=== PATIENT | male | born 1970 | race Caucasian/White ===

== ENCOUNTER 2020-02-26 12:30 | Inpatient (IN) | payer MEDICARE, SELFPAY ==
[2020-02-26 13:29] VITALS: BP 105/63; PULSE 87; RESP 18; TEMP 37.4; O2SAT 96; BMI 30.4; BMI 30.5
--- NOTE | 2020-02-26 13:52 | PCM.HP.STD ---
Problem List (1) Physical debility Status: Acute Comment: due to recent Left BKA on 02/11/20 for osteomyelitis/septic arthritisw with a gas producing organism and gas throughout the left LE distal to the knee. BKA performed by [facility] M[facility] at [facility] (2) History of left below knee amputation Status: Acute Comment: 02/11/20 after he failed multiple debridements at [facility] and antibiotics (3) Osteomyelitis Status: Chronic Qualifiers: Osteomyelitis location: foot Laterality: left (4) Type II diabetes mellitus Status: Acute (5) Multiple sclerosis Status: Acute (6) Dyslipidemia Status: Acute (7) Anemia Status: Acute (8) Diabetic neuropathy associated with type 2 diabetes mellitus Status: Acute (9) Peripheral vascular disease Status: Acute (10) Amputation of right great toe Status: Acute (11) HTN (hypertension) Status: Chronic (12) GERD (gastroesophageal reflux disease) Status: Chronic History of Present Illness Date of Admission: 02/26/20 Chief Complaint: physical debility due to L BKA on 02/11/20 Amor Arzola is a 50 year old M with a PMH of MS, DM II - poorly controlled, HTN, diabetic nephropathy, diabetic peripheral polyneuropathy and hx of a Chiari malformation requiring neurosurgery who sprained his ankle and was seen at [facility] ED. A splint was applied and when it was removed 3 days later there were extensive pressure wounds. He was admitted to [facility] and had debridement. He was discharged on IV antibiotics and a wound vac to a SNF. Despite the aggressive wound care and antibiotics the wounds continued to get worse and he was sent to [facility] emergently. CT of the left foot and ankle showed gas throughout the foot and ankle and osteomyelitis. He was taken for an emergent BKA on 02/11/20. He was transferred to [facility] inpt rehab on 02/26/20 for 3 hours af therapy daily to restore him at or near his prior level of function. Amor Lives in an appt which is on 1 floor and there is a ramp entrance. He has a tub/shower unit and a std toilet. He has a cane and a rollator at home. He lives with his girlfriend. He is on disability. He has not seen anyone for MS in over 10 years and he is not on any medication for MS. He had a surgery in the past for a Chiari malformation. He manages his finances at home. Tells me that he checks his BS's twice a day. He takes A long acting insulin at supper daily and also takes Trajenta. He sees his PCP every 3 months. HGBA1C was 14 in October 2019. He tells me that they told him at [facility] his circulation was good. Past Medical History Past Medical History (Chronic Problems): Chronic Problems Osteomyelitis (Chronic) HTN (hypertension) (Chronic) GERD (gastroesophageal reflux disease) (Chronic) Allergies No Known Allergies Allergy (Verified 02/26/20 12:59) Home Medications: Ambulatory Orders Medication Instructions Recorded Atorvastatin Calcium 40 mg PO QHS 02/26/20 Gabapentin [Neurontin] 100 mg PO Q8 02/26/20 Insulin Detemir [Levemir Flextouch] 48 units SC QHS 02/26/20 Insulin Lispro [Humalog] 0 - 15 unit SQ QHS 02/26/20 Insulin Lispro [Humalog] 0 - 30 unit SC TID 02/26/20 Lisinopril 5 mg PO DAILY 02/26/20 Omeprazole 40 mg PO QHS 02/26/20 Oxycodone [Oxyir] 5 mg PO Q6H PRN PRN 02/26/20 Sitagliptin Phosphate [Januvia] 100 mg PO DAILY 02/26/20 Surgical History: - - 2016 R great toe Amputation. 02/11/20 L BKA. 1994 surgery for chiari malformation, ORIF of foot and toes 03/27/14. Psychiatric History: No pertinent psych hx Lives: Spouse/ Significant Other Smoking Status: Never smoker Tobacco Use: Non-smoker, - - admits to binge drinking 12 beers at a time a couple times a month Alcohol: Occasional - admits to binge drinking 12 beers at a time a couple times a month Drugs: None - *Family History Paternal History Items: - - His dad wied when he was 1 YOA and he does not know anything about his dad Maternal History Items: Cancer - mom of stomach cancer Sibling History Items: - - he has 6 brothers and 4 sisters. 12 sister has diabetes and he has a brother with CVD and has had a few heart attacks. Review of Systems Constitutional: Denies: Anorexia, Chills, Fever, Malaise, Weight Change Eyes: Denies: Vision Change HEENT: Denies: Difficulty Swallowing, Head Aches, Post Nasal Drip, Sinus Congestion, Sinus Drainage, Sore Throat Cardiovascular: Denies: Chest Pain, Claudication, Edema, Light Headedness, Palpitations Respiratory: Denies: Cough, Shortness of breath at rest, Shortness of breath upon exertion, Sputum production Gastrointestinal: Reports: - - he has reflux. Denies: Abdominal Pain, Constipation, Diarrhea, Nausea, Vomiting Genitourinary: Denies: Dysuria, Hesitancy Musculoskeletal: Reports: - - he has pain a the site of the AMputation. Denies: Joint Pain, Joint Tenderness Skin: Reports: Dryness. Denies: Jaundice, Rash, Wounds Neurological: Reports: Balance problems. Denies: Double vision, Difficulty swallowing, Focal weakness, Headaches, Numbness, Tingling, Tremor, Seizures Psychiatric: Denies: Anxiety, Depression, Homicidal Ideations, Suicidal Ideations Endocrine: Reports: Change in Body Habitus - he had the Left leg amputated Hematologic/ Lymphatic: Denies: Easy Bruising, Easy Bleeding, Hx of blood clot VTE Information - Inpt Only VTE Present on Admission: No VTE Mechan Device Prophylaxis: Knee High EDIS Hose VTE Pharm Prophylaxis ordered?: Yes Patient Problems: Active and Suspected Problems Physical debility (Acute) due to recent Left BKA on 02/11/20 for osteomyelitis/septic arthritisw with a gas producing organism and gas throughout the left LE distal to the knee. BKA performed by [facility] Marm[facility] at [facility] History of left below knee amputation (Acute) 02/11/20 after he failed multiple debridements at [facility] and antibiotics Type II diabetes mellitus (Acute) Multiple sclerosis (Acute) Dyslipidemia (Acute) Anemia (Acute) Diabetic neuropathy associated with type 2 diabetes mellitus (Acute) Peripheral vascular disease (Acute) Amputation of right great toe (Acute) - Physical Exam Vitals/I&O's: Vital Signs Temp Pulse Resp BP Pulse Ox 99.3 F H 87 18 105/63 96 02/26/20 13:29 02/26/20 13:29 02/26/20 13:29 02/26/20 13:29 02/26/20 13:29 Oxygen Delivery Method Room Air General: Alert, Oriented x3, Cooperative, No apparent distress, - - appropriate and pleasant HEENT: Atraumatic, PERRLA, EOMI, Normocephalic Oral: Moist Mucosa, No Gingival or Mucosal Lesions/ Ulcerations, - - poor dentition with several missing teeth and some carious teeth Neck: Supple, No JVD, Negative Carotid Bruits, No Nodes, Trachea Midline Lungs: Clear to auscultation - after a few deep breaths......initially had coarse crackles in the bases, No rhonchi, No wheeze, - - He has no conversational dyspnea and is not tachypneic. Cardiovascular: Regular Rhythm, Normal S1, Normal S2, No murmurs, No Ectopic Activity, No rub noted, No Gallop, - - resting HR is a little fast Abdomen: Bowel Sounds Present, Soft, Non Tender, Non-Distended Extremities: No clubbing, No cyanosis, No edema, - - the left popliteal pulse is 2/3 the right DP is 1-2/3 and the R PT is 2/3. The right popliteal is 2/3. the right foot is not cool to touch. He has had a R great toe amputation and there is long scar over the dorsum of the foot extending from the base of the ankle to the base of the toes. Skin: No rashes, No breakdown, - - The incision of the stump is well coapted and there is no jeremy-incisional erythema Musculoskeletal: No Muscle Wasting Neurological: Cranial nerves II-XII grossly intact, Neuro grossly intact - he has decreased sensation in his feet in a stocking distribution Psych/Mental Status: Normal Affect, Appropriate Current Medications Atorvastatin Calcium (Atorvastatin Calcium 40 Mg Tablet) 40 mg PO QHS [facility] Bisacodyl (Bisacodyl 10 Mg Suppository) 10 mg RECTAL .PRN X 1 PRN PRN Reason: Constipation Gabapentin (Gabapentin 100 Mg Capsule) 100 mg PO Q8 [facility] Stop: 03/04/20 23:00 Insulin Glargine (Insulin Glargine 100 Units/Ml Pen) 48 units SC QHS [facility] Linagliptin (Linagliptin 5 Mg Tablet) 5 mg PO DAILY [facility] Lisinopril (Lisinopril 5 Mg Tablet) 5 mg PO DAILY [facility] Magnesium Hydroxide (Magnesium Hydroxide 30 Ml Udc) 30 ml PO .PRN X 1 PRN PRN Reason: Constipation Non-Formulary Medication (Insulin Lispro) 0 - 15 unit SQ QHS [facility] Non-Formulary Medication (Insulin Lispro) 0 - 30 unit SC TID [facility] Oxycodone HCl (Oxycodone 5 Mg Tablet) 5 mg PO Q6H PRN PRN PRN Reason: Pain 1-10 or Fever Pantoprazole Sodium (Pantoprazole Sodium 40 Mg Tablet) 40 mg PO DAILY [facility] Assessment/Plan All Active Problems Physical debility (Acute) History of left below knee amputation (Acute) Type II diabetes mellitus (Acute) Multiple sclerosis (Acute) Dyslipidemia (Acute) Anemia (Acute) Diabetic neuropathy associated with type 2 diabetes mellitus (Acute) Peripheral vascular disease (Acute) Amputation of right great toe (Acute) Impressions 1. Physical debility secondary to recent left BKA for gas gangrene and osteomyelitis of the left foot and ankle. 2. Anemia secondary to acute blood loss plus/- iron deficiency MCV is low at 81 and the RDW is increased 3. Uncontrolled DM II - on LA insulin and Tradjenta 4. dietary non-compliance - Needs education 5. suspected PVD - will request the PVR's done a t [facility] 6. Hypertension 7. Hyperlipidemia - LDL is at goal 8. GERD 9. Reported history of multiple sclerosis-not on medication and has not seen a neurologist in greater than 10 years 10. Diabetic peripheral polyneuropathy 11. Diabetic nephropathy with an increased microalbumin/creatinine ratio at greater than 500 12. Low HDL 13. Family history of cardiovascular disease in his brother - Amor has never had a stress test. He denies CP with exertion BUT, he has neuropathy PLAN PT for gait stability OT for ADL's ST for evaluation of cognition Analgesics as needed Bowel protocol Fall precautions Assess for Anxiety/Depression GI prophylaxis with Protonix DVT prophylaxis with Lovenox 40 mg subcu daily and EDIS hose to the right lower extremity Follow up with orthopedics and his primary care physician following DC from [facility]. Will also need to follow up for a supervisor fabrication department sock and a prosthesis AM lab including CMP, CBC, Mag and Phos, Lipid panel, HGBA1C consult the internet developer to recreation counselor him in a proper carb consistent diet I have discussed having him follow up with Dr. Betancourt post discharge and he is agreeable Inpatient E&M: 25909 Init Hosp L2
[2020-02-26] MEDS: Gabapentin 100 MG Capsule PO ×2 (13:58→21:12)
[2020-02-26 14:06] LABS: Bedside Glucose 159 mg/dL (70-110)
[2020-02-26 15:00] VITALS: O2SAT 96
[2020-02-26 15:20] VITALS: PULSE 87; RESP 18; O2SAT 96
--- NOTE | 2020-02-26 15:25 | REHABEVAL_ITS ---
Admission Information Primary Diagnosis:: debility due to L BKA on 02/11/20 Status Changes from Prescreening?: No changes Identified Actual Problem List:: Skin Intergrity, Pain, ALteration in Cmfrt, Cognitve Impr/Memory Loss, Mobility Impaired, Self Care Deficit, Know.Dfct/Disease Process, Diabetes, Hyperglycemia, BP, Hypertension, Alteration-Leisure Activ. Potential Problem List:: DVT, Bleeding, Infection, UTI, Aspiration, Falls, Skin Integrity, Depression Risk of Complications DVT: LMWH, EDIS Hose Bleeding: Monitor Lab Values, Nursing to Teach Precautions for anti-coagulation therapy., Wound, if applicable, to be assessed every shift., Stroke patients assessed for lethargy or change in status. Infection: Clinical Staff to Monitor for S/S of infection:, S/S of infection i nclude fever, redness, warmth, etc. Urinary Tract Infection: Monitor for frequency, burning, discomfort, or incontinence., Nursing will obtain urine sample for urinalysis and C&S when ordered. Aspiration: Clinical staff will monitor for coughing, drooling, congestion., Speech will evaluate swallowing and dsyphasia., Nursing will monitor patient swa llowing during meals. Falls: Patient will be evaluated for Fall Precautions, Patient will be placed on Fall Precautions as indicated per protocol. Skin Breakdown: Nursing will assess skin daily using assessment tool., Nursing will place on Skin Breakdown Precautions as indicated. Pain: Clinical staff will assess patient's pain level per protocol., Medications will be given, if needed, and the pain level reassessed., Other methods: Massage, distraction, decrease stimulus, etc. used PRN. Plan of Care Patient requires physician specializing in physical medicine and rehab oversight to provide close medical supervision of rehab issues including: Pain Management, Sleep Problems, Bowel and Bladder, Medical and co-morbidity Management, DVT prophylaxis, Rehabilitation Leadership, Coordination of treatment team Patient needs Physical Therapy: For a minimum of 1 hour, At least 5 out of 7 days Patient needs Physical Therapy to improve:: Mobility, Mobility, Mobility, Strengthening, Transfers, Stretching, ROM, Endurance, Stairs, Gait, Balance Patient needs Occupational Therapy: For a minimum of 1 hour, At least 5 out of 7 days Patient needs Occupational Therapy to improve ADL's incl.: Eating, Grooming, Bathing, Dressing, Toileting, Toilet transfers, Community Reintegration, Higher functioning activities, Household tasks, Adaptive Equipment, Splinting, Other activities as determined Patient requires speech therapy: For a minimum of 1 hour, At least 5 out of 7 days Patient requires speech therapy for: Cognition, Language Skills, Compensatory Strategies Patient requires 24/ Rehabilitation Nursing for: Pain Issues, Identifying and preventing risk factors, Monitoring and reporting current medical conditions, Assisting with ambulation, transfer, and all ADL's, Teaching patients about disease process and medications, Family teaching, Providing safe environment, Bowel and Bladder Issues, Skin integrity, Medication Management Patient needs Reporting Consultant/ Case Management for: Discharge Planning, Arranging Home Equipment or Services, Family Interventions Patient needs Dietary and Nutrition Services for: Adequate Nutrition, Nutritional Supplements, Nutritional Education Goals Patient will remain: free from falls, or injury at time of discharge. Patient will perform bed mobility at: MOD I level of assist. Patient will complete transfers from bed to chair at: MOD I level of assist. Patient will ambulate: with MOD I assist, with LRD, - - 20 feet Patient will propel wheelchair: with MOD I assist, - - 200 feet Patient will complete upper body dressing at: MOD I level of assist. Patient will complete lower body dressing at: MOD I level of assist. Patient will complete toileting at: Standby Assist. Patient will perform bathing at: - - Minimal assist x1 Patient will complete grooming at: MOD I level of assist. Patient will complete home management skills at: MOD I level of assist. Patient will achieve: at MOD I assist, - - 1 step to negitiate curb Patient will have pain level of: of 3 or less Patient's skin will: remain intact, free from infection. Patient will receive: adequate nutrition. Discharge Planning Pt Prognosis for Sig. Practical Improv. w/in Reasonable Time: Good Anticipated D/C Destination: Home with Outpt Therapy Was Preadmission Assessment Accurate?: Yes
[2020-02-26] MEDS: Insulin Lispro 100 UNIT/ML INSULN.PEN SC (17:28)
[2020-02-26 17:35] LABS: Bedside Glucose 150 mg/dL (70-110)
[2020-02-26] MEDS: Atorvastatin Calcium 40 MG Tablet PO (21:12)
[2020-02-26 21:25] LABS: Bedside Glucose 255 mg/dL (70-110)
[2020-02-26 22:00] VITALS: BP 119/69; PULSE 87; RESP 16; TEMP 36.6; O2SAT 96
[2020-02-27 03:21] LABS: Bedside Glucose 152 mg/dL (70-110)
[2020-02-27 05:33] LABS: Hematocrit 32.3 % (40-54); Hemoglobin 10.2 g/dL (13.0-16.5); Mean Corp Hgb Conc 31.6 g/dL (32-36); Mean Corpuscular Hgb 25.8 pg (27.0-32.0); Mean Corpuscular Volume 81.8 fL (80-94); Mean Platelet Vol. 10.3 fl (6.2-12.0); Platelet Count 312 K/mm3 (150-450); RBC Distribution Width CV 15.5 % (11.6-14.6); RBC Distribution Width SD 46.5 fl (35.1-43.9); Red Blood Count 3.95 M/mm3 (4.6-6.2)
[2020-02-27 06:01] LABS: ALB/GLOB Ratio 0.5 RATIO (0.9-2.4); AST(SGOT) 27 U/L (15-37); Alanine Aminotransfer ALT/SGPT 39 U/L (16-61); Albumin, Serum 2.5 g/dL (3.2-5.0); Alkaline Phosphatase 176 U/L (45-117); Anion Gap 7 (5-15); BUN 20 mg/dL (7-18); BUN/Creat Ratio 19.4 RATIO (10-20); Calcium,Total 8.8 mg/dL (8.5-10.1); Chloride 104 mmol/L (98-107); Cholesterol 138 mg/dL (200); Creatinine, Serum 1.03 mg/dL (0.70-1.30); EST Glomerular Filtration Rate 81 mL/min (>60); Est Glom Filt Rate - Afr Amer 98 mL/min (>60); Estimated Creatinine Clearance 83.89 ml/min; Glucose 126 mg/dL (74-106); High Density Lipoprotein 31 mg/dL; Magnesium 2.1 mg/dL (1.6-2.6); Potassium 4.2 mmol/L (3.5-5.1); Protein, Total 7.5 g/dL (6.4-8.2); Sodium Level 140 mmol/L (136-145); Triglycerides 200 mg/dL; Very Low Density Lipoprotein 40 mg/dL (5-40)
[2020-02-27] MEDS: oxyCODONE 5 MG Tablet PO (06:16)
[2020-02-27] MEDS: Gabapentin 100 MG Capsule PO ×3 (06:16→21:22)
[2020-02-27 07:50] LABS: Hemoglobin A1c 8.3 % (3.8-5.6)
[2020-02-27] MEDS: Insulin Lispro 100 UNIT/ML INSULN.PEN SC ×3 (07:53→16:27)
[2020-02-27] MEDS: Pantoprazole Sodium 40 MG Tablet PO (07:55)
[2020-02-27] MEDS: Lisinopril 5 MG Tablet PO (07:55)
[2020-02-27] MEDS: LINAGLIPTIN 5 MG TABLET PO (07:55)
[2020-02-27 08:43] VITALS: PULSE 90; RESP 16; O2SAT 95
[2020-02-27 08:56] VITALS: BP 108/67; PULSE 90; RESP 16; TEMP 36.6; O2SAT 95
--- NOTE | 2020-02-27 10:23 | NURSING ---
Requests for records faxed to Janna Benavides CNP and [facility].
--- NOTE | 2020-02-27 10:53 | NURSING ---
Spoke with nurse for Dr. Marmolejo at this time. Okay to remove holly to BKA incision on 03/03 as long as incision WNL.
--- NOTE | 2020-02-27 11:22 | PCM.PROGNOTE ---
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 BKA performed by Dr. Marmolejo at [facility] History of left below knee amputation (Acute) 02/11/20 after he failed multiple debridements at [facility] and antibiotics Type II diabetes mellitus (Acute) Multiple sclerosis (Acute) Dyslipidemia (Acute) Anemia (Acute) Diabetic neuropathy associated with type 2 diabetes mellitus (Acute) Peripheral vascular disease (Acute) Amputation of right great toe (Acute) Subjective: Afebrile VSS Maintaining appropriate oxygen saturation on RA Oral intake is very good Discussed with nursing - no problems that need addressed Reviewed the PT/OT notes Medication list reviewed. We have not received arterial studies of the LE's from [place] yet. I did get a PN form his PCP. He has diabetic nephropathy with an increased microalbumin ratio of 502mg/G. This number doubled from 2019 to 2020. Creatinine is currently 1.03 with an estimated GFR of 81. He is not compliant with medications....he failed to start the prandial insulin prescribed by his PCP All lab was personally reviewed. Triglycerides are high at 200-I suspect this is secondary to poorly controlled blood sugar. The total cholesterol is 138 with a LDL of 67 (at goal) and a low HDL at 31. Hemoglobin is low at 10.2 with an MCV of 81.8 and increased RDW. - Physical Exam Vitals/I&O's: Vital Signs Temp Pulse Resp BP Pulse Ox 97.8 F 90 16 108/67 95 02/27/20 08:56 02/27/20 08:56 02/27/20 08:56 02/27/20 08:56 02/27/20 08:56 Oxygen Delivery Method Room Air Weight: 206 lb 2.115 oz Body Mass Index (BMI) 30.4 Intake and Output for Last 24 Hours 02/25/20 02/26/20 02/27/20 23:59 23:59 23:59 Intake Total 480 / 480 955 / 955 Output Total 950 / 950 400 / 400 Balance -470 / -470 555 / 555 General: Alert, Cooperative, No apparent distress Oral: Moist Mucosa Lungs: Clear to auscultation Cardiovascular: Regular rate, Regular Rhythm, Normal S1, Normal S2, No murmurs, No Gallop Abdomen: Bowel Sounds Present, Soft, Non Tender Extremities: No edema, No Calf Tenderness Skin: - - The incision is intact with no periincisional erythema and no purulent discharge. The skin is dry and flaky. Musculoskeletal: Muscle Wasting - Of the right calf especially and somewhat of the BL thighs Neurological: Cranial nerves II-XII grossly intact Psych/Mental Status: Normal Affect, Appropriate Laboratory Results 02/26/20 13:59: POC Glucose 159 H 02/26/20 17:23: POC Glucose 150 H 02/26/20 21:09: POC Glucose 255 H 02/27/20 03:16: POC Glucose 152 H 02/27/20 05:23: WBC 8.0, RBC 3.95 L, Hgb 10.2 L, Hct 32.3 L, MCV 81.8, MCH 25.8 L, MCHC 31.6 L, RDW Std Deviation 46.5 H, RDW Coeff of Emily 15.5 H, Plt Count 312, MPV 10.3 02/27/20 05:23: Sodium 140, Potassium 4.2, Chloride 104, Carbon Dioxide 29.0, Anion Gap 7, BUN 20 H, Creatinine 1.03, Estim Creat Clear Calc 83.89, Est GFR (MDRD) Af Amer 98, Est GFR (MDRD) Non-Af 81, BUN/Creatinine Ratio 19.4, Glucose 126 H, Calcium 8.8, Magnesium 2.1, Total Bilirubin 0.60, AST 27, ALT 39, Alkaline Phosphatase 176 H, Total Protein 7.5, Albumin 2.5 L, Globulin 5.0 H, Albumin/Globulin Ratio 0.5 L, Triglycerides 200 H, Cholesterol 138, LDL Cholesterol 67, VLDL Cholesterol 40, HDL Cholesterol 31 L 02/27/20 05:23: Hemoglobin A1c 8.3 H Current Medications Atorvastatin Calcium (Atorvastatin Calcium 40 Mg Tablet) 40 mg PO QHS [facility] Last Admin: 02/26/20 21:12 Dose: 40 mg Documented by: Bisacodyl (Bisacodyl 10 Mg Suppository) 10 mg RECTAL .PRN X 1 PRN PRN Reason: Constipation Gabapentin (Gabapentin 100 Mg Capsule) 100 mg PO Q8 [facility] Stop: 03/04/20 23:00 Last Admin: 02/27/20 06:16 Dose: 100 mg Documented by: Insulin Glargine (Insulin Glargine 100 Units/Ml Pen) 48 units SC QHS [facility] Last Admin: 02/26/20 21:12 Dose: 48 u Documented by: Insulin Human Lispro (Insulin Lispro 100 Unit/Ml Insuln.Pen) 0 unit SC TIDAC [facility]; Protocol Last Admin: 02/27/20 07:53 Dose: 3 u Documented by: Linagliptin (Linagliptin 5 Mg Tablet) 5 mg PO DAILY [facility] Last Admin: 02/27/20 07:55 Dose: 5 mg Documented by: Lisinopril (Lisinopril 5 Mg Tablet) 5 mg PO DAILY [facility] Last Admin: 02/27/20 07:55 Dose: 5 mg Documented by: Magnesium Hydroxide (Magnesium Hydroxide 30 Ml Udc) 30 ml PO .PRN X 1 PRN PRN Reason: Constipation Oxycodone HCl (Oxycodone 5 Mg Tablet) 5 mg PO Q6H PRN PRN PRN Reason: Pain 1-10 or Fever Last Admin: 02/27/20 06:16 Dose: 5 mg Documented by: Pantoprazole Sodium (Pantoprazole Sodium 40 Mg Tablet) 40 mg PO DAILY [facility] Last Admin: 02/27/20 07:55 Dose: 40 mg Documented by: Medical Necessity - Tobacco Use Smoking Status: Never smoker Tobacco Use: Non-smoker, - - admits to binge drinking 12 beers at a time a couple times a month Assessment/Plan All Active Problems Physical debility (Acute) History of left below knee amputation (Acute) Type II diabetes mellitus (Acute) Multiple sclerosis (Acute) Dyslipidemia (Acute) Anemia (Acute) Diabetic neuropathy associated with type 2 diabetes mellitus (Acute) Peripheral vascular disease (Acute) Amputation of right great toe (Acute) Impressions 1. Physical debility secondary to recent left BKA for gas gangrene and osteomyelitis of the left foot and ankle and also due to untreated MS with atrophy of the muscles of the LE's. 2. Anemia secondary to acute blood loss plus - iron studies not consistent with iron deficiency 3. Uncontrolled DM II - on LA insulin and Tradjenta....he is refusing the Metformin I ordered Monday because it doesn't agree with him 4. dietary non-compliance - Needs education 5. no PVD on vascular studies done at [facility] - he had triphasic wave forms and good CORI's 6. Hypertension -controlled 7. Hyperlipidemia - LDL is at goal 8. GERD 9. Reported history of multiple sclerosis-diagnosed in 1991 by a PCP in [place] and then [facility] [place] who confirmed. 10. Diabetic peripheral polyneuropathy 11. Diabetic nephropathy with an increased microalbumin/creatinine ratio at greater than 500 12. Low HDL 13. Family history of cardiovascular disease in his brother - Amor has never had a stress test. He denies CP with exertion BUT, he has neuropathy 14. Cognitive dysfunction - short term memory difficulties - ST will continue to work with him. This may be multifactorial....due to MS and to possible hydrocephalus prior to the surgery for the CHiari malformation 15. dry dermatitis of the LE's BL - moisturizer ordered Continue therapy I would like to gather aida abdalla information on how the diagnosis of MS was made and also why if he does have MS it is not being treated and he is not following up with a neurologist? I suspect he he does have MS because he has significant atrophy of the R calf muscle and the BL thighs. Inpatient E&M: 71259 Subs Hosp L2
[2020-02-27 11:25] LABS: Bedside Glucose 146 mg/dL (70-110)
[2020-02-27 11:35] LABS: Bedside Glucose 268 mg/dL (70-110)
[2020-02-27 16:50] LABS: Bedside Glucose 160 mg/dL (70-110)
--- NOTE | 2020-02-27 17:49 | NURSING ---
Medical records received from Janna Benavides CNP and [facility].
[2020-02-27 19:44] VITALS: BP 107/58; PULSE 98; RESP 18; TEMP 36.9; O2SAT 99
[2020-02-27 21:16] LABS: Bedside Glucose 257 mg/dL (70-110)
[2020-02-27] MEDS: Atorvastatin Calcium 40 MG Tablet PO (21:22)
[2020-02-28] MEDS: Gabapentin 100 MG Capsule PO ×3 (05:34→22:50)
[2020-02-28 06:55] LABS: Bedside Glucose 169 mg/dL (70-110)
[2020-02-28] MEDS: oxyCODONE 5 MG Tablet PO (07:39)
[2020-02-28] MEDS: Lisinopril 5 MG Tablet PO (07:40)
[2020-02-28] MEDS: LINAGLIPTIN 5 MG TABLET PO (07:40)
[2020-02-28] MEDS: Pantoprazole Sodium 40 MG Tablet PO (07:40)
[2020-02-28] MEDS: Insulin Lispro 100 UNIT/ML INSULN.PEN SC ×3 (07:41→17:06)
--- NOTE | 2020-02-28 09:53 | PCM.PROGNOTE ---
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 BKA performed by Dr. Marmolejo at [facility] History of left below knee amputation (Acute) 02/11/20 after he failed multiple debridements at [facility] and antibiotics Type II diabetes mellitus (Acute) Multiple sclerosis (Acute) Dyslipidemia (Acute) Anemia (Acute) Diabetic neuropathy associated with type 2 diabetes mellitus (Acute) Peripheral vascular disease (Acute) Amputation of right great toe (Acute) Subjective: Afebrile VSS-blood pressure is well controlled. Heart rate is frequently in the 90s. Maintaining appropriate oxygen saturation on RA Oral intake is good Discussed with nursing - no problems that need addressed Reviewed the PT/OT/ST notes Medication list reviewed. Blood sugar record was reviewed. BS's are not adequately controlled Denies pain. No nausea/vomiting/abdominal plain/shortness of breath/palpitations/lightheadedness. Nursing can not get him to stand and pivot....therapy is working with him using a slide board. - Physical Exam Vitals/I&O's: Vital Signs Temp Pulse Resp BP Pulse Ox 98.4 F 98 18 107/58 L 99 02/27/20 19:44 02/27/20 19:44 02/27/20 19:44 02/27/20 19:44 02/27/20 19:44 Oxygen Delivery Method Room Air Weight: 206 lb 2.115 oz Body Mass Index (BMI) 30.4 Intake and Output for Last 24 Hours 02/26/20 02/27/20 02/28/20 23:59 23:59 23:59 Intake Total 480 / 480 2675 / 2825 550 / 550 Output Total 950 / 950 1675 / 1675 1200 / 1200 Balance -470 / -470 1000 / 1150 -650 / -650 General: Alert, Oriented x3, Cooperative, No apparent distress HEENT: Atraumatic Neck: Supple Lungs: Clear to auscultation Cardiovascular: Regular Rhythm, No Gallop, - - resting HR is a little high Abdomen: Soft, Non Tender Extremities: No edema Skin: No rashes, No breakdown, - - The incision is intact without any sign of infection Musculoskeletal: Muscle Wasting - Legs Neurological: Cranial nerves II-XII grossly intact Laboratory Results 02/27/20 06:16: POC Glucose 146 H 02/27/20 11:28: POC Glucose 268 H 02/27/20 16:26: POC Glucose 160 H 02/27/20 21:06: POC Glucose 257 H 02/28/20 06:45: POC Glucose 169 H Current Medications Atorvastatin Calcium (Atorvastatin Calcium 40 Mg Tablet) 40 mg PO QHS [facility]END[facility] TO [facility] Last Admin: 02/27/20 21:22 Dose: 40 mg Documented by: Bisacodyl (Bisacodyl 10 Mg Suppository) 10 mg RECTAL .PRN X 1 PRN PRN Reason: Constipation Gabapentin (Gabapentin 100 Mg Capsule) 100 mg PO Q8 [facility] Stop: 03/04/20 23:00 Last Admin: 02/28/20 05:34 Dose: 100 mg Documented by: Insulin Glargine (Insulin Glargine 100 Units/Ml Pen) 48 units SC QHS [facility] Last Admin: 02/27/20 21:21 Dose: 48 u Documented by: Insulin Human Lispro (Insulin Lispro 100 Unit/Ml Insuln.Pen) 0 unit SC TIDAC [facility]; Protocol Last Admin: 02/28/20 07:41 Dose: 3 u Documented by: Linagliptin (Linagliptin 5 Mg Tablet) 5 mg PO DAILY [facility] Last Admin: 02/28/20 07:40 Dose: 5 mg Documented by: Lisinopril (Lisinopril 5 Mg Tablet) 5 mg PO DAILY [facility] Last Admin: 02/28/20 07:40 Dose: 5 mg Documented by: Magnesium Hydroxide (Magnesium Hydroxide 30 Ml Udc) 30 ml PO .PRN X 1 PRN PRN Reason: Constipation Oxycodone HCl (Oxycodone 5 Mg Tablet) 5 mg PO Q6H PRN PRN PRN Reason: Pain 1-10 or Fever Last Admin: 02/28/20 07:39 Dose: 5 mg Documented by: Pantoprazole Sodium (Pantoprazole Sodium 40 Mg Tablet) 40 mg PO DAILY [facility] Last Admin: 02/28/20 07:40 Dose: 40 mg Documented by: Medical Necessity - Tobacco Use Smoking Status: Never smoker Tobacco Use: Non-smoker, - - admits to binge drinking 12 beers at a time a couple times a month Assessment/Plan All Active Problems Physical debility (Acute) History of left below knee amputation (Acute) Type II diabetes mellitus (Acute) Multiple sclerosis (Acute) Dyslipidemia (Acute) Anemia (Acute) Diabetic neuropathy associated with type 2 diabetes mellitus (Acute) Peripheral vascular disease (Acute) Amputation of right great toe (Acute) Impressions 1. Physical debility secondary to multiple sclerosis and recent left BKA. Patient's legs have been weak for quite some time. He is unable to stand and pivot to get in and out of bed. Nursing and therapy are now using a slide board. I suspect he will not be able to walk as walking and balance were disabilities for him prior to the amputation. May just have to focus on WC mobility. 2. hyperkeratotic callous on the R foot with a very small wound on the dorsum of the 3rd toe I would like to see him follow up with the [facility] for MS Will discuss with the SW getting a casey saw operator to advocate for him.....I do not think he is mentally able to do this. Consult Dr. Harrison for debraidement of the nails on the left foot and also debridement of the callous. Inpatient E&M: 80713 Subs Hosp L1
[2020-02-28 10:00] VITALS: BP 114/65; PULSE 94; RESP 16; TEMP 36.8; O2SAT 98
[2020-02-28 11:15] LABS: Bedside Glucose 203 mg/dL (70-110)
[2020-02-28 11:28] LABS: Ferritin 230 ng/mL (26-388); Iron 46 ug/dL (65-175); Iron Binding Capacity,Total 216 ug/dL (250-450); PERCENT IRON SATURATION 21.3 % (15.0-55.0)
[2020-02-28 14:34] LABS: Thyroid Stim Hormone (TSH) 1.43 uIU/mL (0.358-3.74)
[2020-02-28] MEDS: metFORMIN HCl 500 MG Tablet 750 MG PO (17:05)
[2020-02-28 18:11] LABS: Bedside Glucose 194 mg/dL (70-110)
[2020-02-28 19:37] VITALS: BP 135/77; PULSE 98; RESP 18; TEMP 36.4; O2SAT 98
[2020-02-28 21:11] LABS: Bedside Glucose 235 mg/dL (70-110)
[2020-02-28] MEDS: Pantoprazole Sodium 20 MG Tablet PO (22:50)
[2020-02-28] MEDS: Atorvastatin Calcium 40 MG Tablet PO (22:50)
[2020-02-29] MEDS: Enoxaparin 40 MG/0.4 ML Syringe SC (06:22)
[2020-02-29] MEDS: Gabapentin 100 MG Capsule PO ×3 (06:23→21:41)
[2020-02-29 07:06] LABS: Bedside Glucose 142 mg/dL (70-110)
[2020-02-29] MEDS: metFORMIN HCl 500 MG Tablet 750 MG PO (08:30)
[2020-02-29] MEDS: LINAGLIPTIN 5 MG TABLET PO (08:31)
[2020-02-29] MEDS: Pantoprazole Sodium 20 MG Tablet PO ×2 (08:31→21:41)
[2020-02-29] MEDS: Lisinopril 5 MG Tablet PO (08:31)
[2020-02-29 08:34] VITALS: BP 116/70; PULSE 91; RESP 16; TEMP 36.7; O2SAT 96
[2020-02-29 11:31] LABS: Bedside Glucose 215 mg/dL (70-110)
[2020-02-29] MEDS: Insulin Lispro 100 UNIT/ML INSULN.PEN SC ×2 (13:01→17:20)
[2020-02-29 16:40] LABS: Bedside Glucose 173 mg/dL (70-110)
--- NOTE | 2020-02-29 18:10 | PCM.CONS.GEN ---
Reason for Consult Date of Consultation: 02/29/20 Reason for Consultation: Right foot History of Present Illness: The patient is a 50 year old gentleman with history of multiple medical problems including hx of uncontrolled diabetes, MS, gangrene s/p left BKA end of January now in rehab. Podiatry was consulted for right foot, patient has hx of ulceration on bottom of right foot. Patient with hx of right 1st toe amputation, also hx of surgery on right foot from fractures per patient. Patient relates regarding left foot he had gangrene, relates he is not sure how he got gangrene, he relates by the time he realized he had gangrene it was to late and he had to have the amputation. Patient relates regarding wound right foot he was following with a physician in [place], relates he was putting Medihoney on it and it really helped. Patient also with long toenails which need to be reduced right foot. He also relates he had a pair of shoes which rubbed his toes on right foot and caused some sores - he relates he does not have those shoes any more. Past Medical History Past Medical History (Chronic Problems): Chronic Problems Osteomyelitis (Chronic) HTN (hypertension) (Chronic) GERD (gastroesophageal reflux disease) (Chronic) Allergies No Known Allergies Allergy (Verified 02/26/20 12:59) Home Medications: Ambulatory Orders Medication Instructions Recorded Atorvastatin Calcium 40 mg PO QHS 02/26/20 Gabapentin [Neurontin] 100 mg PO Q8 02/26/20 Insulin Detemir [Levemir Flextouch] 48 units SC QHS 02/26/20 Insulin Lispro [Humalog] 0 - 15 unit SQ QHS 02/26/20 Insulin Lispro [Humalog] 0 - 30 unit SC TID 02/26/20 Lisinopril 5 mg PO DAILY 02/26/20 Omeprazole 40 mg PO QHS 02/26/20 Oxycodone [Oxyir] 5 mg PO Q6H PRN PRN 02/26/20 Sitagliptin Phosphate [Januvia] 100 mg PO DAILY 02/26/20 Surgical History: - - 2016 R great toe Amputation. 02/11/20 L BKA. 1994 surgery for chiari malformation, ORIF of foot and toes 03/27/14. Psychiatric History: No pertinent psych hx Lives: Spouse/ Significant Other Smoking Status: Never smoker Tobacco Use: Non-smoker, - - admits to binge drinking 12 beers at a time a couple times a month Alcohol: Occasional - admits to binge drinking 12 beers at a time a couple times a month Drugs: None - *Family History Paternal History Items: - - His dad wied when he was 1 YOA and he does not know anything about his dad Maternal History Items: Cancer - mom of stomach cancer Sibling History Items: - - he has 6 brothers and 4 sisters. 12 sister has diabetes and he has a brother with CVD and has had a few heart attacks. Review of Systems Constitutional: Denies: Chills, Fever Gastrointestinal: Denies: Nausea, Vomiting Patient Problems: Active and Suspected Problems Physical debility (Acute) due to recent Left BKA on 02/11/20 for osteomyelitis/septic arthritisw with a gas producing organism and gas throughout the left LE distal to the knee. BKA performed by Dr. Marmolejo at [facility] History of left below knee amputation (Acute) 02/11/20 after he failed multiple debridements at [facility] and antibiotics Type II diabetes mellitus (Acute) Multiple sclerosis (Acute) Dyslipidemia (Acute) Anemia (Acute) Diabetic neuropathy associated with type 2 diabetes mellitus (Acute) Peripheral vascular disease (Acute) Amputation of right great toe (Acute) Objective: No evidence of acute ischemia to the right foot, CFT < 2 seconds to all toes, however DP and PT pulses diminished with palpation to the right foot. - Physical Exam Vitals/I&O's: Vital Signs Temp Pulse Resp BP Pulse Ox 98.3 F 98 18 114/66 98 02/29/20 19:21 02/29/20 19:21 02/29/20 19:21 02/29/20 19:21 02/29/20 19:21 Oxygen Delivery Method Room Air Weight: 93.5 kg Body Mass Index (BMI) 30.4 Intake and Output for Last 24 Hours 02/27/20 02/28/20 02/29/20 23:59 23:59 23:59 Intake Total 2675 / 2825 1999 1520 / 1520 Output Total 1675 / 1675 2725 / 2725 900 / 900 Balance 1000 / 1150 -725 / -725 620 / 620 General: Alert, Oriented x3, Cooperative, No apparent distress, - - Patient resting comfortably in bed watching TV. Extremities: No cyanosis, Capillary Refill Less than 3 Seconds, No Calf Tenderness, - - s/p left BKA. Right foot with HPK callus sub 1st met head w/ no open lesion. There is noted to be scab with superificial wound to the dorsal 3rd toe down to dermal layer, measures 2mm x 1mm and healthy viable tissue w/ no evidence of infection, no other open lesions to right foot. Skin: - - Right foot with long, dystrophic toenails, thickened 1-5. Skin with some xerosis right foot. No other open lesions to the right foot, no erythema, no blistering, no necrosis, no fluctuance, no crepitus to the right foot. Musculoskeletal: No Tenderness to Palpation of Joints or Extremities - Right foot. s/p right 1st toe amputation which is well healed. No POP or pain on ROM to the foot or ankle, right., - - Contracture of lesser toes, right foot. Neurological: - - Sensation appears to be intact via light touch to the right foot. Motor function intact to the right foot. Psych/Mental Status: Alert and oriented to time, place, person, mood and affect Laboratory Results 02/28/20 21:05: POC Glucose 235 H 02/29/20 06:21: POC Glucose 142 H 02/29/20 11:24: POC Glucose 215 H 02/29/20 16:35: POC Glucose 173 H Current Medications Atorvastatin Calcium (Atorvastatin Calcium 40 Mg Tablet) 40 mg PO QHS [facility] Last Admin: 02/28/20 22:50 Dose: 40 mg Documented by: Bisacodyl (Bisacodyl 10 Mg Suppository) 10 mg RECTAL .PRN X 1 PRN PRN Reason: Constipation Dextrose (Dextrose 50%-Water 25 Gm/50 Ml Disp.Syrin) 0 gm IV X1 PRN; Protocol PRN Reason: Hypoglycemia Emollient Ointment (Emollient Combination No.72 500 Ml Lotion) 1 applic TOPICAL BID [facility]; Protocol Last Admin: 02/29/20 08:28 Dose: 1 applicatio Documented by: Enoxaparin Sodium (Enoxaparin 40 Mg/0.4 Ml Syringe) 40 mg SC DAILY@0600 [facility] Last Admin: 02/29/20 06:22 Dose: 40 mg Documented by: Gabapentin (Gabapentin 100 Mg Capsule) 100 mg PO Q8 [facility] Stop: 03/04/20 23:00 Last Admin: 02/29/20 13:06 Dose: 100 mg Documented by: Glucagon (Glucagon 1 Mg/Ml Syringe) 1 mg IM .X1 PRN PRN Reason: Hypoglycemia Insulin Glargine (Insulin Glargine 100 Units/Ml Pen) 40 units SC QHS [facility] Last Admin: 02/28/20 22:50 Dose: 40 units Documented by: Insulin Human Lispro (Insulin Lispro 100 Unit/Ml Insuln.Pen) 0 unit SC TIDAC [facility]; Protocol Last Admin: 02/29/20 17:20 Dose: 3 u Documented by: Linagliptin (Linagliptin 5 Mg Tablet) 5 mg PO DAILY [facility] Last Admin: 02/29/20 08:31 Dose: 5 mg Documented by: Lisinopril (Lisinopril 5 Mg Tablet) 5 mg PO DAILY [facility] Last Admin: 02/29/20 08:31 Dose: 5 mg Documented by: Magnesium Hydroxide (Magnesium Hydroxide 30 Ml Udc) 30 ml PO .PRN X 1 PRN PRN Reason: Constipation Metformin HCl (Metformin Hcl 500 Mg Tablet) 750 mg PO BIDCM [facility] Last Admin: 02/29/20 17:23 Dose: Not Given Documented by: Oxycodone HCl (Oxycodone 5 Mg Tablet) 5 mg PO Q6H PRN PRN PRN Reason: Pain 1-10 or Fever Last Admin: 02/28/20 07:39 Dose: 5 mg Documented by: Pantoprazole Sodium (Pantoprazole Sodium 20 Mg Tablet) 20 mg PO BID [facility] Last Admin: 02/29/20 08:31 Dose: 20 mg Documented by: Assessment/Plan All Active Problems Physical debility (Acute) History of left below knee amputation (Acute) Type II diabetes mellitus (Acute) Multiple sclerosis (Acute) Dyslipidemia (Acute) Anemia (Acute) Diabetic neuropathy associated with type 2 diabetes mellitus (Acute) Peripheral vascular disease (Acute) Amputation of right great toe (Acute) Callus sub 1st metatarsal head right foot Dystrophic toenails 1-5 right foot Xerosis right foot Ulcer down to dermal layer right 3rd toe Hammer toes right foot s/p right 1st toe amputation, s/p Left BKA Uncontrolled Diabetes Multiple Sclerosis Right foot evaluated. Reviewed findings with patient. Reviewed proper diabetic foot care and shoegear with patient. The HPK callus sub 1st met head was debrided using a 15 blade, this was done without incident, there is no open lesion present at this time. Debrided toenails 1-5 right foot using a nail nipper, removing bulk, this was done without incident. Wound right 3rd toe - small and superficial - clean with normal saline soln, apply dry gauze dressing - change daily until healed. Keep offloaded. There is no evidence of acute ischemia to the right foot. Vascular studies have been requested from his workup at [facility]. Patient wound benefits from diabetic shoes and inserts given diabetic status, as well as hx of ulcerations and previous amputation. Patient may follow [facility] discharge for measuring and ordering, along with further on going foot care which will be important for preventative DM foot care.
[2020-02-29 19:21] VITALS: BP 114/66; PULSE 98; RESP 18; TEMP 36.8; O2SAT 98
[2020-02-29] MEDS: oxyCODONE 5 MG Tablet PO (21:38)
[2020-02-29] MEDS: Atorvastatin Calcium 40 MG Tablet PO (21:41)
[2020-02-29 21:46] LABS: Bedside Glucose 186 mg/dL (70-110)
[2020-02-29 22:00] VITALS: PULSE 92; RESP 16; O2SAT 96
[2020-03-01] MEDS: Enoxaparin 40 MG/0.4 ML Syringe SC (06:09)
[2020-03-01] MEDS: Gabapentin 100 MG Capsule PO ×3 (06:09→22:06)
[2020-03-01 07:06] LABS: Bedside Glucose 139 mg/dL (70-110)
[2020-03-01 07:38] VITALS: BP 118/85; PULSE 88; RESP 16; TEMP 36.6; O2SAT 97
[2020-03-01] MEDS: LINAGLIPTIN 5 MG TABLET PO (09:43)
[2020-03-01] MEDS: Lisinopril 5 MG Tablet PO (09:43)
[2020-03-01] MEDS: Pantoprazole Sodium 20 MG Tablet PO ×2 (09:43→22:06)
[2020-03-01 11:15] LABS: Bedside Glucose 210 mg/dL (70-110)
[2020-03-01] MEDS: Insulin Lispro 100 UNIT/ML INSULN.PEN SC ×2 (13:10→17:46)
[2020-03-01 16:55] LABS: Bedside Glucose 161 mg/dL (70-110)
[2020-03-01 22:00] VITALS: BP 117/71; PULSE 89; RESP 18; TEMP 36.5; O2SAT 96
[2020-03-01] MEDS: Atorvastatin Calcium 40 MG Tablet PO (22:06)
[2020-03-01 22:21] LABS: Bedside Glucose 247 mg/dL (70-110)
[2020-03-01 22:25] VITALS: PULSE 99; RESP 16; O2SAT 97
[2020-03-02] MEDS: Enoxaparin 40 MG/0.4 ML Syringe SC (06:25)
[2020-03-02] MEDS: Gabapentin 100 MG Capsule PO ×3 (06:25→22:17)
[2020-03-02 06:45] LABS: Bedside Glucose 218 mg/dL (70-110)
--- NOTE | 2020-03-02 07:31 | NURSING ---
Reviewed and agree with truck packer documentation and charting.
[2020-03-02] MEDS: Insulin Lispro 100 UNIT/ML INSULN.PEN SC ×4 (07:41→22:18)
[2020-03-02] MEDS: metFORMIN HCl 500 MG Tablet 750 MG PO ×2 (07:42→17:02)
[2020-03-02] MEDS: oxyCODONE 5 MG Tablet PO (07:42)
[2020-03-02] MEDS: Pantoprazole Sodium 20 MG Tablet PO ×2 (07:43→22:17)
[2020-03-02] MEDS: Lisinopril 5 MG Tablet PO (07:43)
[2020-03-02] MEDS: LINAGLIPTIN 5 MG TABLET PO (07:43)
[2020-03-02 09:05] VITALS: BP 117/78; PULSE 98; RESP 16; TEMP 36.7; O2SAT 96
--- NOTE | 2020-03-02 10:25 | PCM.PROGNOTE ---
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 BKA performed by Dr. Marmolejo at [facility] History of left below knee amputation (Acute) 02/11/20 after he failed multiple debridements at [facility] and antibiotics Type II diabetes mellitus (Acute) Multiple sclerosis (Acute) Dyslipidemia (Acute) Anemia (Acute) Diabetic neuropathy associated with type 2 diabetes mellitus (Acute) Peripheral vascular disease (Acute) Amputation of right great toe (Acute) Subjective: Patient was seen today for follow up on right foot wound. He relates he is doing well, no complaints of fever, chills, nausea or vomiting. - Physical Exam Vitals/I&O's: Vital Signs Temp Pulse Resp BP Pulse Ox 98.1 F 98 16 117/78 96 03/02/20 09:05 03/02/20 09:05 03/02/20 09:05 03/02/20 09:05 03/02/20 09:05 Oxygen Delivery Method Room Air Weight: 93.5 kg Body Mass Index (BMI) 30.4 Intake and Output for Last 24 Hours 02/29/20 03/01/20 03/02/20 23:59 23:59 23:59 Intake Total 1760 / 1760 1540 / 1540 400 / 400 Output Total 1450 / 1450 1600 / 1600 400 / 400 Balance 310 / 310 -60 / -60 0 / 0 General: Alert, Oriented x3, Cooperative, No apparent distress Extremities: Capillary Refill Less than 3 Seconds, No Calf Tenderness - s/p left BKA. Right foot with resolved callus sub 1st met head w/ no open lesion. There is noted to be healing superificial wound to the dorsal 3rd toe down to dermal layer, measures <1mm x <1mm and healthy viable tissue w/ no evidence of infection, no other open lesions to right foot., - - No evidence of acute ischemia to the right foot. No POP or pain on ROM to the right foot. Psych/Mental Status: Appropriate, Alert and oriented to time, place, person, mood and affect Laboratory Results 03/01/20 11:11: POC Glucose 210 H 03/01/20 16:37: POC Glucose 161 H 03/01/20 22:06: POC Glucose 247 H 03/02/20 06:35: POC Glucose 218 H Current Medications Atorvastatin Calcium (Atorvastatin Calcium 40 Mg Tablet) 40 mg PO QHS [facility] Last Admin: 03/01/20 22:06 Dose: 40 mg Documented by: Bisacodyl (Bisacodyl 10 Mg Suppository) 10 mg RECTAL .PRN X 1 PRN PRN Reason: Constipation Dextrose (Dextrose 50%-Water 25 Gm/50 Ml Disp.Syrin) 0 gm IV X1 PRN; Protocol PRN Reason: Hypoglycemia Emollient Ointment (Emollient Combination No.72 500 Ml Lotion) 1 applic TOPICAL BID [facility]; Protocol Last Admin: 03/02/20 07:46 Dose: 1 applicatio Documented by: Enoxaparin Sodium (Enoxaparin 40 Mg/0.4 Ml Syringe) 40 mg SC DAILY@0600 [facility] Last Admin: 03/02/20 06:25 Dose: 40 mg Documented by: Gabapentin (Gabapentin 100 Mg Capsule) 100 mg PO Q8 [facility] Stop: 03/04/20 23:00 Last Admin: 03/02/20 06:25 Dose: 100 mg Documented by: Glucagon (Glucagon 1 Mg/Ml Syringe) 1 mg IM .X1 PRN PRN Reason: Hypoglycemia Insulin Glargine (Insulin Glargine 100 Units/Ml Pen) 40 units SC QHS [facility] Last Admin: 03/01/20 22:07 Dose: 40 units Documented by: Insulin Human Lispro (Insulin Lispro 100 Unit/Ml Insuln.Pen) 0 unit SC TIDAC [facility]; Protocol Last Admin: 03/02/20 07:41 Dose: 6 u Documented by: Linagliptin (Linagliptin 5 Mg Tablet) 5 mg PO DAILY [facility] Last Admin: 03/02/20 07:43 Dose: 5 mg Documented by: Lisinopril (Lisinopril 5 Mg Tablet) 5 mg PO DAILY [facility] Last Admin: 03/02/20 07:43 Dose: 5 mg Documented by: Magnesium Hydroxide (Magnesium Hydroxide 30 Ml Udc) 30 ml PO .PRN X 1 PRN PRN Reason: Constipation Metformin HCl (Metformin Hcl 500 Mg Tablet) 750 mg PO BIDCM [facility] Last Admin: 03/02/20 07:42 Dose: 750 mg Documented by: Oxycodone HCl (Oxycodone 5 Mg Tablet) 5 mg PO Q6H PRN PRN PRN Reason: Pain 1-10 or Fever Last Admin: 03/02/20 07:42 Dose: 5 mg Documented by: Pantoprazole Sodium (Pantoprazole Sodium 20 Mg Tablet) 20 mg PO BID [facility] Last Admin: 03/02/20 07:43 Dose: 20 mg Documented by: Medical Necessity - Tobacco Use Smoking Status: Never smoker Tobacco Use: Non-smoker, - - admits to binge drinking 12 beers at a time a couple times a month Assessment/Plan All Active Problems Physical debility (Acute) History of left below knee amputation (Acute) Type II diabetes mellitus (Acute) Multiple sclerosis (Acute) Dyslipidemia (Acute) Anemia (Acute) Diabetic neuropathy associated with type 2 diabetes mellitus (Acute) Peripheral vascular disease (Acute) Amputation of right great toe (Acute) Ulcer down to dermal layer right 3rd toe - healing well Hammer toes right foot s/p right 1st toe amputation, s/p Left BKA Uncontrolled Diabetes Multiple Sclerosis Right foot evaluated. Reviewed findings with patient. Reviewed proper diabetic foot care and shoegear with patient. The HPK callus sub 1st met head site is doing very well, site remains healed. Wound right 3rd toe - small and superficial - healing - clean with normal saline soln, apply dry gauze dressing - change daily until healed. Keep offloaded. There is no evidence of acute ischemia to the right foot. Vascular studies have been requested from his workup at [facility]. Patient relates he does not have shoes. Ordered surgical shoe for him to use right foot. Patient wound benefits from diabetic shoes and inserts given diabetic status, as well as hx of ulcerations and previous amputation. Patient may follow up at [facility] discharge for measuring and ordering, along with further on going foot care which will be important for preventative DM foot care.
--- NOTE | 2020-03-02 10:30 | CASEMGMT ---
Social Work IDT met with patient for Team meeting. S.O. was not available. Nursing trialed SPT, used x2-3 assist but no safe as pt does not have strength in legs. Therapy and nursing using slideboard for tx Munir x1-2. Pt to focus on w/c mobility. Pt could client support coordinator Saralift for 8 mins, which will continue. Pt is Munir for bathing, seated set up for grooming, and UKaylyn araujo, mod for ISAMAR araujo, encouraging bed level for more independence. St working on ST memory, executive functioning. Nursing monitoring incision and stump. Pt has muscle atrophy in rt leg and has not followed up with neurology since MS dx in 1991, per pt. explained not foreseeing pt walking again and discussed risks of needing right leg amputated. Explained blood ugars need to be controlled ,which they are not right now d/t pt snacking. recommending f/u with neurologist at [facility]. Pt receives disability for MS. SW to research getting a C.M. assigned for pt at [facility] to continue to assist with needs. Explained insurance with [employer] 03/03 and continued stay is not guaranteed. Will ReTeam next week. Will continue to follow. Nohemi Mckenzie, HOSPICE AIDE [employer]
--- NOTE | 2020-03-02 11:59 | PCM.PROGNOTE ---
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 BKA performed by Dr. Marmolejo at [facility] History of left below knee amputation (Acute) 02/11/20 after he failed multiple debridements at [facility] and antibiotics Type II diabetes mellitus (Acute) Multiple sclerosis (Acute) Dyslipidemia (Acute) Anemia (Acute) Diabetic neuropathy associated with type 2 diabetes mellitus (Acute) Peripheral vascular disease (Acute) Amputation of right great toe (Acute) Subjective: Amor was seen on team rounds today. No one was available to participate in rounds by phone. Afebrile VSS Maintaining appropriate oxygen saturation on RA Oral intake is good Discussed with nursing - no problems that need addressed Reviewed the PT/OT/ST notes Medication list reviewed. It turns out the amari was initially diagnosed with multiple sclerosis in 1991 by a primary care doctor in [place]. He was referred to [facility] in [place] and was seen by a Dr. Graham? who concurred with the diagnosis and told him that 1 day he would lose the ability to WALK. He has not seen a neurologist since then and he is not on treatment for MS. He has marked atrophy of the R calf. He can not stand and pivot because he is too weak and has poor balance. He has poor memory. His upper body strength is good I reviewed Dr. Echavarria note and appreciate his care of this pt. will order a surgical shoe. BS record was reviewed. He has been refusing the glucophage. - Physical Exam Vitals/I&O's: Vital Signs Temp Pulse Resp BP Pulse Ox 98.1 F 98 16 117/78 96 03/02/20 09:05 03/02/20 09:05 03/02/20 09:05 03/02/20 09:05 03/02/20 09:05 Oxygen Delivery Method Room Air Weight: 206 lb 2.115 oz Body Mass Index (BMI) 30.4 Intake and Output for Last 24 Hours 02/29/20 03/01/20 03/02/20 23:59 23:59 23:59 Intake Total 1760 / 1760 1540 / 1540 400 / 400 Output Total 1450 / 1450 1600 / 1600 400 / 400 Balance 310 / 310 -60 / -60 0 / 0 General: Alert, Cooperative, No apparent distress Oral: Moist Mucosa Lungs: Clear to auscultation Cardiovascular: Regular rate, Regular Rhythm, Normal S1, Normal S2, - - resting HR is higher than expected but not >100 Abdomen: Bowel Sounds Present, Soft, Non Tender, Non-Distended Extremities: No edema, - - R foot callous and nails were debrided by Dr. Harrison Skin: No rashes, No breakdown, - - the incision is intact with no jeremy-wound erythema and no DC Neurological: Cranial nerves II-XII grossly intact, Neuro grossly intact Psych/Mental Status: Normal Affect, Appropriate Laboratory Results 03/01/20 16:37: POC Glucose 161 H 03/01/20 22:06: POC Glucose 247 H 03/02/20 06:35: POC Glucose 218 H Current Medications Atorvastatin Calcium (Atorvastatin Calcium 40 Mg Tablet) 40 mg PO QHS [facility] Last Admin: 03/01/20 22:06 Dose: 40 mg Documented by: Bisacodyl (Bisacodyl 10 Mg Suppository) 10 mg RECTAL .PRN X 1 PRN PRN Reason: Constipation Dextrose (Dextrose 50%-Water 25 Gm/50 Ml Disp.Syrin) 0 gm IV X1 PRN; Protocol PRN Reason: Hypoglycemia Emollient Ointment (Emollient Combination No.72 500 Ml Lotion) 1 applic TOPICAL BID [facility]; Protocol Last Admin: 03/02/20 07:46 Dose: 1 applicatio Documented by: Enoxaparin Sodium (Enoxaparin 40 Mg/0.4 Ml Syringe) 40 mg SC DAILY@0600 [facility] Last Admin: 03/02/20 06:25 Dose: 40 mg Documented by: Gabapentin (Gabapentin 100 Mg Capsule) 100 mg PO Q8 [facility] Stop: 03/04/20 23:00 Last Admin: 03/02/20 06:25 Dose: 100 mg Documented by: Glucagon (Glucagon 1 Mg/Ml Syringe) 1 mg IM .X1 PRN PRN Reason: Hypoglycemia Insulin Glargine (Insulin Glargine 100 Units/Ml Pen) 40 units SC QHS [facility] Last Admin: 03/01/20 22:07 Dose: 40 units Documented by: Insulin Human Lispro (Insulin Lispro 100 Unit/Ml Insuln.Pen) 0 unit SC TIDAC [facility]; Protocol Last Admin: 03/02/20 11:54 Dose: 3 u Documented by: Linagliptin (Linagliptin 5 Mg Tablet) 5 mg PO DAILY [facility] Last Admin: 03/02/20 07:43 Dose: 5 mg Documented by: Lisinopril (Lisinopril 5 Mg Tablet) 5 mg PO DAILY [facility] Last Admin: 03/02/20 07:43 Dose: 5 mg Documented by: Magnesium Hydroxide (Magnesium Hydroxide 30 Ml Udc) 30 ml PO .PRN X 1 PRN PRN Reason: Constipation Metformin HCl (Metformin Hcl 500 Mg Tablet) 750 mg PO BIDCM [facility] Last Admin: 03/02/20 07:42 Dose: 750 mg Documented by: Oxycodone HCl (Oxycodone 5 Mg Tablet) 5 mg PO Q6H PRN PRN PRN Reason: Pain 1-10 or Fever Last Admin: 03/02/20 07:42 Dose: 5 mg Documented by: Pantoprazole Sodium (Pantoprazole Sodium 20 Mg Tablet) 20 mg PO BID [facility] Last Admin: 03/02/20 07:43 Dose: 20 mg Documented by: Medical Necessity - Tobacco Use Smoking Status: Never smoker Tobacco Use: Non-smoker, - - admits to binge drinking 12 beers at a time a couple times a month Assessment/Plan All Active Problems Physical debility (Acute) History of left below knee amputation (Acute) Type II diabetes mellitus (Acute) Multiple sclerosis (Acute) Dyslipidemia (Acute) Anemia (Acute) Diabetic neuropathy associated with type 2 diabetes mellitus (Acute) Peripheral vascular disease (Acute) Amputation of right great toe (Acute) Impressions 1. Physical debility secondary to recent left BKA for gas gangrene and osteomyelitis of the left foot and ankle and also due to untreated MS with atrophy of the muscles of the LE's. 2. Anemia secondary to acute blood loss plus - iron studies not consistent with iron deficiency 3. Uncontrolled DM II - on LA insulin and Tradjenta....he is refusing the Metformin I ordered Monday because it doesn't agree with him 4. dietary non-compliance - Needs education 5. no PVD on vascular studies done at [facility] - he had triphasic wave forms and good CORI's 6. Hypertension -controlled 7. Hyperlipidemia - LDL is at goal 8. GERD 9. Reported history of multiple sclerosis-diagnosed in 1991 by a PCP in [place] and [facility] [place] [facility]. 10. Diabetic peripheral polyneuropathy 11. Diabetic nephropathy with an increased microalbumin/creatinine ratio at greater than 500 12. Low HDL 13. Family history of cardiovascular disease in his brother - Amor has never had a stress test. He denies CP with exertion BUT, he has neuropathy 14. Cognitive dysfunction - short term memory difficulties - ST will continue to work with him. This may be multifactorial....due to MS and to possible hydrocephalus prior to the surgery for the CHiari malformation SW will arrange for the pt to get a case assembler He needs to follow up with neurology for MS - I recommended the [facility]. He may benefit from tx. I suspect he will not be able to walk going forward. Certainly not in the near future. Maybe if he gets tx for MS and has much more PT to strengthen the R LE......he has significant muscle atrophy. I think we should focus on WC mobility for now. Fit for a green house manager as OP Will find out from the surgeon if we will be able to remove the holly in the stump if we send photos or if he will need to go to [place] to have this done DC the glucophage and the TraDjenta Change the Lantus to BID dosing - 25 AM and 15 at HS Start a GLP-1 agonist - Victoza since his risk for CAD/vascular disease is high Continue SSI and continue BS's AC and HS Inpatient E&M: 19351 Subs Hosp L2
[2020-03-02 12:05] LABS: Bedside Glucose 208 mg/dL (70-110)
[2020-03-02 17:10] LABS: Bedside Glucose 208 mg/dL (70-110)
[2020-03-02 20:54] VITALS: BP 134/67; PULSE 97; RESP 16; TEMP 36.1; O2SAT 99
[2020-03-02] MEDS: Atorvastatin Calcium 40 MG Tablet PO (22:17)
[2020-03-02 22:56] LABS: Bedside Glucose 265 mg/dL (70-110)
[2020-03-03 06:46] LABS: Bedside Glucose 178 mg/dL (70-110)
[2020-03-03] MEDS: Gabapentin 100 MG Capsule PO ×3 (06:47→22:18)
[2020-03-03] MEDS: Enoxaparin 40 MG/0.4 ML Syringe SC (06:47)
[2020-03-03] MEDS: Insulin Lispro 100 UNIT/ML INSULN.PEN SC ×4 (07:44→22:17)
[2020-03-03] MEDS: Lisinopril 5 MG Tablet PO (07:45)
[2020-03-03] MEDS: oxyCODONE 5 MG Tablet PO (07:45)
[2020-03-03] MEDS: Pantoprazole Sodium 20 MG Tablet PO ×2 (07:45→22:18)
[2020-03-03 09:33] VITALS: BP 128/82; PULSE 96; RESP 16; TEMP 36.6; O2SAT 96
--- NOTE | 2020-03-03 10:24 | CASEMGMT ---
Social Work Met with patient for follow up. Pt reports doing well overall, sleeping well and good mood. Inquired about his feelings toward possibly not walking again/soon. Pt stated he is still holding on to that and has hope he will walk again. Validated feelings and encouraged continued positivity. Pt reports no other issues/concerns/questions. Nohemi Mckenzie, ARTISAN PLASTERER MEAT SUPERVISOR
[2020-03-03 12:00] LABS: Bedside Glucose 201 mg/dL (70-110)
[2020-03-03 17:35] LABS: Bedside Glucose 225 mg/dL (70-110)
[2020-03-03 19:26] VITALS: BP 100/69; PULSE 94; RESP 16; TEMP 36.6; O2SAT 98
[2020-03-03] MEDS: Atorvastatin Calcium 40 MG Tablet PO (22:18)
[2020-03-03 22:36] LABS: Bedside Glucose 206 mg/dL (70-110)
[2020-03-04] MEDS: Enoxaparin 40 MG/0.4 ML Syringe SC (06:20)
[2020-03-04] MEDS: Gabapentin 100 MG Capsule PO ×3 (06:20→21:02)
[2020-03-04 07:11] LABS: Bedside Glucose 154 mg/dL (70-110)
[2020-03-04] MEDS: Insulin Lispro 100 UNIT/ML INSULN.PEN SC ×4 (07:48→21:04)
[2020-03-04] MEDS: Pantoprazole Sodium 20 MG Tablet PO ×2 (07:50→21:03)
[2020-03-04] MEDS: Lisinopril 5 MG Tablet PO (07:50)
[2020-03-04 08:41] VITALS: BP 127/78; PULSE 104; RESP 16; TEMP 36.9; O2SAT 97
[2020-03-04 10:00] VITALS: PULSE 104; RESP 16; O2SAT 96
[2020-03-04 11:21] LABS: Bedside Glucose 216 mg/dL (70-110)
[2020-03-04 17:01] LABS: Bedside Glucose 204 mg/dL (70-110)
[2020-03-04 19:43] VITALS: BP 139/82; PULSE 90; RESP 16; TEMP 36.8; O2SAT 99
[2020-03-04] MEDS: Atorvastatin Calcium 40 MG Tablet PO (21:02)
[2020-03-04 21:35] LABS: Bedside Glucose 211 mg/dL (70-110)
[2020-03-05] MEDS: Enoxaparin 40 MG/0.4 ML Syringe SC (05:44)
[2020-03-05 06:21] LABS: Bedside Glucose 179 mg/dL (70-110)
[2020-03-05 07:20] VITALS: BP 136/75; PULSE 103; RESP 16; TEMP 36.7; O2SAT 99
[2020-03-05] MEDS: Insulin Lispro 100 UNIT/ML INSULN.PEN SC ×4 (08:28→21:32)
[2020-03-05] MEDS: Pantoprazole Sodium 20 MG Tablet PO ×2 (08:29→21:31)
[2020-03-05] MEDS: Lisinopril 5 MG Tablet PO (08:30)
[2020-03-05 10:00] VITALS: PULSE 103
[2020-03-05 11:46] LABS: Bedside Glucose 258 mg/dL (70-110)
--- NOTE | 2020-03-05 15:09 | PCM.PN.BLA ---
Progress Note I met with Amor, his significant other Iqra and the SW Nohemi to discuss plans going forward. I once again told Amor that I do not foresee him ever walking again with the atrophy in his legs and the untreated MS. He also has weakness in the arms and will possibly in the future not be able to propel the WC. Iqra tells me his arms have been weak for awhile now. He also has cognitive impairment which I suspect is due to the MS. We talked the signs and symptoms of depression and Amor denies being depressed but, Danielle tells me he gets irritable and mean at times. Possibly part of not controlling the sugars and not seeing a neurologist may be due to apathy. We discussed that MS can be a progressive disease and he may recover some function if he is treated. Iqra seems very concerned about him and is invested in helping him to stay functional. She does not think Amor will follow up. We did discuss all the things that can happen with progressive MS. She told him she would not be able to care for him if he lost the use of his arms. He was watching TV while we were talking. He trells me he will follow up. He also needs a PCP not an MOTION PICTURE EQUIPMENT MACHINIST to manage his primary care. I mentioned that I though he should follow up with an animal killer and he agreed. We talked about trying to get him a geriatric case manager to help advocate for him and he thought that was a good idea. The SW stressed to him that he also has to advocate for himself. If he is not willing to follow up with the appts that are made for him and he does not follow through then people will be less likely to want to advocate for him. I am not sure he is really interested in getting better......said he does not like to take medications. After we met with Amor and Iqra they met with the gear lapper to discuss diet. He now has Ritz crackers, Fritos, Pringles and candy in his room. It is very difficult to control the BS's if he is not going to be compliant with diet. BS's are erratic. Alert and oriented Lungs - CTA HRRR Abd - soft and NT Impressions 1. MS - progressive. I have very little hope that he will walk again, zay if he will not follow up with neurology to discuss tx of MS 2. Physical debility due to MS and recent BKA on the left 3. uncontrolled DM II 4. high risk for CAD given FH, uncontrolled DM II, HTN and HLD and age > 45. 5. I suspect he is depressed and this is the reason he lashes out at [place]. He declines to start a medication because he says that he is not depressed.......he had no reply when [facility] said he gets very touchy with her....meaning mean and irritable.......he started watching TV. change the insulin to Humalog 75/25 BID and continue the SSI and the Victoza. He refused to take the metformin. Inpatient E&M: 88434 Subs Hosp L2
--- NOTE | 2020-03-05 16:04 | CASEMGMT ---
Social Work RAMIREZ and met with patient and S.O. to discuss pt's future. provided extensive education on pt's medical diagnosis - diabetes, M.S. - and recommendations for f/u with specialists and to get a new PCP that can continue to advocate for pt's care. S.O. appeared very invested in wanting the best for pt and to assist in anything he needs. Both expressed understanding in the importance of good medical care, following the proper diet, and taking medications to assist with restoring pt's muscle function. RAMIREZ encouraged pt to continue to advocate for himself after DC with his Dr's to ensure he continues to get proper medical care, but also to make the changes on his own that he needs to do live a functional life. reiterated the risk of pt not walking again or functionally using a w/c due to muscle weakness. Pt expressed understanding. educated to depression - pt denied any depressive symptoms. SW to connect pt with resources for pt after DC. Will research if pt is eligible for C.M. through [facility] Medicaid plan and the Passport program. Pt requires DME, grab bars and ramp to make home safer and w/c accessible. S.O. and pt appreciative of education and meeting. Will continue to follow. DEEP AndersenW
[2020-03-05 16:40] LABS: Bedside Glucose 230 mg/dL (70-110)
[2020-03-05 19:30] VITALS: BP 132/76; PULSE 95; RESP 18; TEMP 36.6; O2SAT 99
[2020-03-05 20:51] LABS: Bedside Glucose 195 mg/dL (70-110)
[2020-03-05] MEDS: Atorvastatin Calcium 40 MG Tablet PO (21:31)
[2020-03-05 22:00] VITALS: PULSE 95; RESP 17; O2SAT 99
[2020-03-06] MEDS: Enoxaparin 40 MG/0.4 ML Syringe SC (06:17)
[2020-03-06 06:56] LABS: Bedside Glucose 175 mg/dL (70-110)
[2020-03-06 08:27] VITALS: BP 125/81; PULSE 99; RESP 17; TEMP 36.5; O2SAT 99
[2020-03-06] MEDS: Insulin Human 75/25 Kwickpen 30 UNIT SC (08:28)
[2020-03-06] MEDS: Insulin Lispro 100 UNIT/ML INSULN.PEN SC (08:29)
[2020-03-06] MEDS: Pantoprazole Sodium 20 MG Tablet PO ×2 (08:30→21:05)
[2020-03-06] MEDS: Lisinopril 5 MG Tablet PO (08:30)
--- NOTE | 2020-03-06 09:29 | CASEMGMT ---
Addendum entered by Nohemi Mckenzie 03/06/20 16:13: Spoke with coordinator at on [employer] whom can submit application to [facility] in hopes to get approved prior to DC date. Will continue to follow. Original Note: Social Work Submitted Waiver application to [facility] this date. Notified pt of insurance approval with NRD 03/13. Will ReTeam Monday. DEEP AndersenW
--- NOTE | 2020-03-06 10:30 | PN_ITS ---
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 BKA performed by Dr. Marmolejo at [facility] History of left below knee amputation (Acute) 02/11/20 after he failed multiple debridements at [facility] and antibiotics Type II diabetes mellitus (Acute) Multiple sclerosis (Acute) Dyslipidemia (Acute) Anemia (Acute) Diabetic neuropathy associated with type 2 diabetes mellitus (Acute) Peripheral vascular disease (Acute) Amputation of right great toe (Acute) Subjective: Afebrile Blood pressure is well controlled Maintaining appropriate oxygen saturation on room air PT/OT and ST notes were reviewed. Blood sugar record was reviewed. Blood sugar at bedtime was 195 and he received 15 units of Lantus and 3 units of Humalog. Today the fasting was 175 and he is starting BID Humalog 75/25 insulin. No hypoglycemia. He is excited about going home next Monday. The pain is well controlled and he rarely takes an OXY IR. He denies chest pain, shortness of breath, calf tenderness, nausea/vomiting/abdominal pain, and headedness. Alert and oriented X 3 Lungs - CTA, diminished, zay in the bases HRRR but the resting HR is high...consistently in the s. Oral intake is variable and some days he does not drink much. ABD - soft and NT. no edema in the RLE stump looks good, no breakdown, no erythema and no DC. No dehiscence He is still not getting that the MS is going to keep him from being able to walk. He has considerable atrophy in the muscles of the R leg and the Left thigh. He asked the STEVEDORE DOCK yesterday why his DM would keep him from getting a prosthesis. He has significant cognitive dysfunction and ST is recommending he continue therapy after discharge Impressions 1. Physical debility secondary to recent left BKA and also to advance MS - untreated. I am hopeful he will follow up at the [facility] for treatment. 2. Multiple sclerosis 3. Cognitive dysfunction-suspect related to MS 4. History of a Arnold-Chiari malformation-with history of craniectomy in the ......the paperwork from that admission to the hospital stated cognition was intake. 5. Uncontrolled diabetes mellitus type 2 6. Acute blood loss anemia Continue therapy Adjust insulin to get the fasting under 1320 and the Post prandials under 180 consistently. - Physical Exam Vitals/I&O's: Vital Signs Temp Pulse Resp BP Pulse Ox 97.7 F L 99 17 125/81 H 99 03/06/20 08:27 03/06/20 08:27 03/06/20 08:27 03/06/20 08:27 03/06/20 08:27 Oxygen Delivery Method Room Air Weight: 206 lb 2.115 oz Body Mass Index (BMI) 30.4 Intake and Output for Last 24 Hours 03/04/20 03/05/20 03/06/20 23:59 23:59 23:59 Intake Total 660 / 660 1120 / 1120 600 / 600 Output Total 1200 / 1200 1350 / 1350 250 / 250 Balance -540 / -540 -230 / -230 350 / 350 Laboratory Results 03/05/20 11:41: POC Glucose 258 H 03/05/20 16:33: POC Glucose 230 H 03/05/20 20:34: POC Glucose 195 H 03/06/20 06:29: POC Glucose 175 H Current Medications Atorvastatin Calcium (Atorvastatin Calcium 40 Mg Tablet) 40 mg PO QHS [facility] Last Admin: 03/05/20 21:31 Dose: 40 mg Documented by: Bisacodyl (Bisacodyl 10 Mg Suppository) 10 mg RECTAL .PRN X 1 PRN PRN Reason: Constipation Dextrose (Dextrose 50%-Water 25 Gm/50 Ml Disp.Syrin) 0 gm IV X1 PRN; Protocol PRN Reason: Hypoglycemia Emollient Ointment (Emollient Combination No.72 500 Ml Lotion) 1 applic TOPICAL BID [facility]; Protocol Last Admin: 03/06/20 08:32 Dose: 1 applicatio Documented by: Enoxaparin Sodium (Enoxaparin 40 Mg/0.4 Ml Syringe) 40 mg SC DAILY@0600 [facility] Last Admin: 03/06/20 06:17 Dose: 40 mg Documented by: Glucagon (Glucagon 1 Mg/Ml Syringe) 1 mg IM .X1 PRN PRN Reason: Hypoglycemia Insulin Human Lispro (Insulin Lispro 100 Unit/Ml Insuln.Pen) 0 unit SC [facility]; Protocol Last Admin: 03/06/20 08:29 Dose: 3 units Documented by: Insulin Lispro Protam/Lispro Human (Insulin Human 75/25 [place]) 30 unit SC BREAKFAST [facility] Last Admin: 03/06/20 08:28 Dose: 30 u Documented by: Insulin Lispro Protam/Lispro Human (Insulin Human 75/25 [place]) 16 unit SC DINNER [facility] Liraglutide (Liraglutide 0.6 Mg/0.1 Ml Pen.Injctr) 0.6 mg SQ DAILY [facility] Last Admin: 03/06/20 08:31 Dose: 0.6 mg Documented by: Lisinopril (Lisinopril 5 Mg Tablet) 5 mg PO DAILY [facility] Last Admin: 03/06/20 08:30 Dose: 5 mg Documented by: Magnesium Hydroxide (Magnesium Hydroxide 30 Ml Udc) 30 ml PO .PRN X 1 PRN PRN Reason: Constipation Oxycodone HCl (Oxycodone 5 Mg Tablet) 5 mg PO Q6H PRN PRN PRN Reason: Pain 1-10 or Fever Last Admin: 03/03/20 07:45 Dose: 5 mg Documented by: Pantoprazole Sodium (Pantoprazole Sodium 20 Mg Tablet) 20 mg PO BID [facility] Last Admin: 03/06/20 08:30 Dose: 20 mg Documented by: Medical Necessity - Tobacco Use Smoking Status: Never smoker Tobacco Use: Non-smoker, - - admits to binge drinking 12 beers at a time a couple times a month Assessment/Plan All Active Problems Physical debility (Acute) History of left below knee amputation (Acute) Type II diabetes mellitus (Acute) Multiple sclerosis (Acute) Dyslipidemia (Acute) Anemia (Acute) Diabetic neuropathy associated with type 2 diabetes mellitus (Acute) Peripheral vascular disease (Acute) Amputation of right great toe (Acute) Inpatient E&M: 06137 Subs Hosp L2
[2020-03-06 11:30] LABS: Bedside Glucose 89 mg/dL (70-110)
[2020-03-06 17:00] VITALS: BP 150/78; PULSE 96; RESP 18; TEMP 36.9; O2SAT 97
[2020-03-06 17:20] LABS: Bedside Glucose 124 mg/dL (70-110)
[2020-03-06] MEDS: Insulin Human 75/25 Kwickpen 16 UNIT SC (17:48)
[2020-03-06 19:28] VITALS: BP 150/78; PULSE 96; RESP 18; TEMP 36.9; O2SAT 97
[2020-03-06 21:00] LABS: Bedside Glucose 102 mg/dL (70-110)
[2020-03-06] MEDS: Atorvastatin Calcium 40 MG Tablet PO (21:05)
[2020-03-06 22:00] VITALS: PULSE 92; RESP 17; O2SAT 98
[2020-03-07] MEDS: Enoxaparin 40 MG/0.4 ML Syringe SC (05:44)
[2020-03-07 06:41] LABS: Bedside Glucose 125 mg/dL (70-110)
[2020-03-07] MEDS: Pantoprazole Sodium 20 MG Tablet PO ×2 (07:50→21:30)
[2020-03-07] MEDS: Lisinopril 5 MG Tablet PO (07:51)
[2020-03-07] MEDS: oxyCODONE 5 MG Tablet PO (07:51)
[2020-03-07] MEDS: Insulin Human 75/25 Kwickpen 30 UNIT SC (07:52)
[2020-03-07 08:30] VITALS: BP 108/82; PULSE 102; RESP 14; TEMP 36.5; O2SAT 100
[2020-03-07 12:21] LABS: Bedside Glucose 126 mg/dL (70-110)
[2020-03-07] MEDS: Insulin Lispro 100 UNIT/ML INSULN.PEN SC ×2 (16:34→21:28)
[2020-03-07] MEDS: Insulin Human 75/25 Kwickpen 16 UNIT SC (16:35)
[2020-03-07 16:45] LABS: Bedside Glucose 202 mg/dL (70-110)
[2020-03-07 19:52] VITALS: BP 130/80; PULSE 97; RESP 16; TEMP 36.6; O2SAT 98
[2020-03-07 21:26] LABS: Bedside Glucose 178 mg/dL (70-110)
[2020-03-07] MEDS: Atorvastatin Calcium 40 MG Tablet PO (21:30)
[2020-03-08 06:26] LABS: Bedside Glucose 147 mg/dL (70-110)
[2020-03-08] MEDS: Enoxaparin 40 MG/0.4 ML Syringe SC (06:59)
[2020-03-08] MEDS: Insulin Human 75/25 Kwickpen 30 UNIT SC (08:22)
[2020-03-08] MEDS: Pantoprazole Sodium 20 MG Tablet PO ×2 (08:23→19:59)
[2020-03-08] MEDS: Lisinopril 5 MG Tablet PO (08:24)
[2020-03-08 08:44] VITALS: BP 157/90; PULSE 107; RESP 18; TEMP 36.6; O2SAT 95
[2020-03-08 11:20] LABS: Bedside Glucose 141 mg/dL (70-110)
[2020-03-08] MEDS: Insulin Lispro 100 UNIT/ML INSULN.PEN SC ×2 (16:46→22:34)
[2020-03-08] MEDS: Insulin Human 75/25 Kwickpen 16 UNIT SC (16:47)
[2020-03-08 17:11] LABS: Bedside Glucose 189 mg/dL (70-110)
[2020-03-08] MEDS: Atorvastatin Calcium 40 MG Tablet PO (19:58)
[2020-03-08 20:02] VITALS: BP 103/66; PULSE 97; RESP 17; TEMP 36.6; O2SAT 98
[2020-03-08 22:11] LABS: Bedside Glucose 170 mg/dL (70-110)
--- NOTE | 2020-03-09 05:42 | NURSING ---
pt refuses am care at this time. pt states that he would like to get cleaned up at a later time with therapy. denies further need. call light within reach.
[2020-03-09] MEDS: Enoxaparin 40 MG/0.4 ML Syringe SC (06:11)
[2020-03-09 06:36] LABS: Bedside Glucose 168 mg/dL (70-110)
[2020-03-09 08:20] VITALS: BP 118/70; PULSE 102; RESP 18; TEMP 36.9; O2SAT 97
[2020-03-09] MEDS: Pantoprazole Sodium 20 MG Tablet PO ×2 (08:46→20:15)
[2020-03-09] MEDS: Lisinopril 5 MG Tablet PO (08:46)
[2020-03-09] MEDS: Insulin Lispro 100 UNIT/ML INSULN.PEN SC ×3 (08:46→16:46)
[2020-03-09] MEDS: Insulin Human 75/25 Kwickpen 30 UNIT SC (08:47)
--- NOTE | 2020-03-09 10:15 | CASEMGMT ---
Social Work IDT met with patient for Team meeting. S.O. not available. Discussed patient's progress in therapy. Pt is slideboard tx CGA-Munir, but inconsistent as pt lost his balance and needed x2 assist one day. Pt is standing in // bars to work on strengthening, working on w/c mobility going on multiple surfaces SBA. Pt is mo for shower tx, min for bathing, seated for supervised for grooming, supervised for UE dressing, be level SBA for LE dressing. St working on ST memory, med management, and recommending S.O. take over meds. continues to reiterate M.S. is progressive disease, pt's overall weakness, not walking again, and the importance of f/u with neurology at [facility]. Pt states he understands in conversation but unsure of comprehension and carryover of information. Explained insurance NRD 03/13 and continued stay is not guaranteed. Will continue to follow. Nohemi Mckenzie, HEAT TREATMENT TECHNICIAN SAMPLE TAILOR
[2020-03-09 11:50] LABS: Bedside Glucose 191 mg/dL (70-110)
--- NOTE | 2020-03-09 12:23 | PCM.PROGNOTE ---
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 BKA performed by Dr. Marmolejo at [facility] History of left below knee amputation (Acute) 02/11/20 after he failed multiple debridements at [facility] and antibiotics Type II diabetes mellitus (Acute) Multiple sclerosis (Acute) Dyslipidemia (Acute) Anemia (Acute) Diabetic neuropathy associated with type 2 diabetes mellitus (Acute) Peripheral vascular disease (Acute) Amputation of right great toe (Acute) Subjective: Patient seen and examined on bedside chair. Patient is resting comfortably while eating lunch. Patient has no new complaints. He states another doctor came by and said that wound to toe is healed. - Physical Exam Vitals/I&O's: Vital Signs Temp Pulse Resp BP Pulse Ox 98.5 F 102 H 18 118/70 97 03/09/20 08:20 03/09/20 08:20 03/09/20 08:20 03/09/20 08:20 03/09/20 08:20 Oxygen Delivery Method Room Air Weight: 93.5 kg Body Mass Index (BMI) 30.4 Intake and Output for Last 24 Hours 03/07/20 03/08/20 03/09/20 23:59 23:59 23:59 Intake Total 1200 / 1200 1979 / 1979 520 / 520 Output Total 850 / 850 1000 / 1000 275 / 275 Balance 350 / 350 980 / 980 245 / 245 General: Alert, Oriented x3, Cooperative HEENT: Atraumatic Extremities: No clubbing, Capillary Refill Less than 3 Seconds, Edema Skin: - - Right foot with resolved callus sub 1st met head w/ no open lesion. right 3rd toe dorsal has well adhered eschar without signs of infection Musculoskeletal: Tenderness, - - left BKA, right hallux amputataion Neurological: Neuro grossly intact Psych/Mental Status: Normal Affect, Appropriate Laboratory Results 03/08/20 16:13: POC Glucose 189 H 03/08/20 22:05: POC Glucose 170 H 03/09/20 06:28: POC Glucose 168 H 03/09/20 11:47: POC Glucose 191 H Current Medications Atorvastatin Calcium (Atorvastatin Calcium 40 Mg Tablet) 40 mg PO QHS [facility] Last Admin: 03/08/20 19:58 Dose: 40 mg Documented by: Bisacodyl (Bisacodyl 10 Mg Suppository) 10 mg RECTAL .PRN X 1 PRN PRN Reason: Constipation Dextrose (Dextrose 50%-Water 25 Gm/50 Ml Disp.Syrin) 0 gm IV X1 PRN; Protocol PRN Reason: Hypoglycemia Emollient Ointment (Emollient Combination No.72 500 Ml Lotion) 1 applic TOPICAL BID [facility]; Protocol Last Admin: 03/09/20 08:50 Dose: 1 applicatio Documented by: Enoxaparin Sodium (Enoxaparin 40 Mg/0.4 Ml Syringe) 40 mg SC DAILY@0600 [facility] Last Admin: 03/09/20 06:11 Dose: 40 mg Documented by: Glucagon (Glucagon 1 Mg/Ml Syringe) 1 mg IM .X1 PRN PRN Reason: Hypoglycemia Insulin Human Lispro (Insulin Lispro 100 Unit/Ml Insuln.Pen) 0 unit SC ACHS [facility]; Protocol Last Admin: 03/09/20 12:04 Dose: 3 units Documented by: Insulin Lispro Protam/Lispro Human (Insulin Human 75/25 [place]pen) 30 unit SC BREAKFAST [facility] Last Admin: 03/09/20 08:47 Dose: 30 u Documented by: Insulin Lispro Protam/Lispro Human (Insulin Human 75/25 Kwickpen) 16 unit SC DINNER [facility] Last Admin: 03/08/20 16:47 Dose: 16 units Documented by: Liraglutide (Liraglutide 0.6 Mg/0.1 Ml Pen.Injctr) 0.6 mg SQ DAILY [facility] Last Admin: 03/09/20 08:48 Dose: 0.6 mg Documented by: Lisinopril (Lisinopril 5 Mg Tablet) 5 mg PO DAILY [facility] Last Admin: 03/09/20 08:46 Dose: 5 mg Documented by: Magnesium Hydroxide (Magnesium Hydroxide 30 Ml Udc) 30 ml PO .PRN X 1 PRN PRN Reason: Constipation Oxycodone HCl (Oxycodone 5 Mg Tablet) 5 mg PO Q6H PRN PRN PRN Reason: Pain 1-10 or Fever Last Admin: 03/07/20 07:51 Dose: 5 mg Documented by: Pantoprazole Sodium (Pantoprazole Sodium 20 Mg Tablet) 20 mg PO BID [facility] Last Admin: 03/09/20 08:46 Dose: 20 mg Documented by: Medical Necessity - Tobacco Use Smoking Status: Never smoker Tobacco Use: Non-smoker, - - admits to binge drinking 12 beers at a time a couple times a month Assessment/Plan All Active Problems Physical debility (Acute) History of left below knee amputation (Acute) Type II diabetes mellitus (Acute) Multiple sclerosis (Acute) Dyslipidemia (Acute) Anemia (Acute) Diabetic neuropathy associated with type 2 diabetes mellitus (Acute) Peripheral vascular disease (Acute) Amputation of right great toe (Acute) Ulcer down to dermal layer right 3rd toe - healed Hammer toes right foot s/p right 1st toe amputation, s/p Left BKA Uncontrolled Diabetes Multiple Sclerosis Right foot evaluated. Reviewed findings with patient. Reviewed proper diabetic foot care and shoegear with patient. The HPK callus sub 1st met head site is doing very well, site remains healed. Wound right 3rd toe - healed with well adhered eschar without signs of infection. Keep offloaded. There is no evidence of acute ischemia to the right foot. Vascular studies have been requested from his workup at [facility]. Patient has surgical shoe for him to use right foot. Patient wound benefits from diabetic shoes and inserts given diabetic status, as well as hx of ulcerations and previous amputation. Patient may follow up at [facility] upon discharge for measuring and ordering, along with further on going foot care which will be important for preventative DM foot care.
--- NOTE | 2020-03-09 13:03 | PN_ITS ---
Progress Note Amor was seen on team rounds today. His significant other Iqra was not available to participate by phone. Afebrile VSS-blood pressures are widely variable and since 03/04/2020 have ranged from 103/66 (last night) to 157/90. The heart rate is in the 90s and low 100s. Maintaining appropriate oxygen saturation on RA Oral intake is good. Discussed with nursing - He has been refusing to do his grooming and AM care with nursing.....has been waiting to do it with therapy and it is cutting down on their time working with him to strengthen his muscles. Reviewed the PT/OT/ST notes. ST is recommending that Iqra help him with his medications. Medication list reviewed. Blood sugar record was reviewed. Amor denies pain. He looks well and has no complaints today. Alert, oriented X 3, NAD, sitting in the recliner at the bedside Lungs - CTA with good air exchange HRRR abd - sot and NT no calf tenderness no rashes and no skin breakdown. Impressions 1. physical debility post L BKA 2. untreated MS with slow progressive loss of strength and also now with cognitive dysfunction 3. DM II -historically uncontrolled with poor dietary compliance 4. resting tachycardia - autonomic dysfunction related to poor BS control? 5. Diabetic nephropathy with proteinuria We discussed the need to start doing his AM care with the nurses and he is agreeable. He is still believing that he is going to get a prosthesis and walk soon. I once again explained that I do not feel it will be anytime soon that he will be able to walk and the reality of the situation is that he may never walk again. I explained the MS sx are progressing and not only does he have atrophy of the R leg he also has arm weakness and cognitive dysfunction. I stressed again that MS is a progressive illness and things will likely continue to decline. At some point he may not be able to propel the WC and I pointed out that his significant other can not lift him and he may end up needing to live in a NH. He had tears in his eyes. I stressed that with tx he may improve and get stronger but, he first has to see a neurologist and be evaluated. He came to me later and wanted to know if he could follow up with Neurology in [place]. I looked up neurologists in [facility] and there is a Dr. Erazo who is in a specialty clinic associated with [facility]. We will get an APPT for him prior to his DC from rehab. Increase the AM 75/25 to 34 units Increase the PM 75/25 to 20 units BMP, CBC in the a.m. Continue therapy Follow up with neurology in [facility] post DC for MS evaluation. There is a male impersonator in [place] at the same specialty Clinic that Dr. Erazo works out of so will ask Amor if he would be willing to follow up to keep the DM II in control. Inpatient E&M: [id number] Subs Hosp L2
[2020-03-09] MEDS: Insulin Human 75/25 Kwickpen 20 UNIT SC (16:47)
[2020-03-09 17:01] LABS: Bedside Glucose 226 mg/dL (70-110)
[2020-03-09 20:00] VITALS: PULSE 95; RESP 18; O2SAT 98
[2020-03-09] MEDS: Atorvastatin Calcium 40 MG Tablet PO (20:15)
[2020-03-09 20:54] VITALS: BP 113/65; PULSE 95; RESP 18; TEMP 36.5; O2SAT 98
[2020-03-09 21:05] LABS: Bedside Glucose 146 mg/dL (70-110)
[2020-03-10 05:44] LABS: Hematocrit 33.8 % (40-54); Hemoglobin 10.8 g/dL (13.0-16.5); Mean Corpuscular Hgb 26.3 pg (27.0-32.0); Mean Corpuscular Volume 82.4 fL (80-94); Mean Platelet Vol. 10.1 fl (6.2-12.0); Platelet Count 217 K/mm3 (150-450); RBC Distribution Width CV 15.4 % (11.6-14.6); RBC Distribution Width SD 46.4 fl (35.1-43.9)
[2020-03-10] MEDS: Enoxaparin 40 MG/0.4 ML Syringe SC (05:45)
[2020-03-10 06:32] LABS: Anion Gap 4 (5-15); BUN 25 mg/dL (7-18); BUN/Creat Ratio 26.9 RATIO (10-20); Calcium,Total 8.4 mg/dL (8.5-10.1); Chloride 108 mmol/L (98-107); Creatinine, Serum 0.93 mg/dL (0.70-1.30); EST Glomerular Filtration Rate 91 mL/min (>60); Est Glom Filt Rate - Afr Amer 110 mL/min (>60); Estimated Creatinine Clearance 92.92 ml/min; Glucose 151 mg/dL (74-106); Sodium Level 140 mmol/L (136-145)
[2020-03-10 06:45] LABS: Bedside Glucose 163 mg/dL (70-110)
[2020-03-10 08:30] VITALS: BP 119/70; PULSE 99; RESP 16; TEMP 36.8; O2SAT 95
[2020-03-10] MEDS: Insulin Lispro 100 UNIT/ML INSULN.PEN SC ×4 (09:17→21:18)
[2020-03-10] MEDS: Pantoprazole Sodium 20 MG Tablet PO ×2 (09:18→21:11)
[2020-03-10] MEDS: Lisinopril 5 MG Tablet PO (09:18)
[2020-03-10] MEDS: Insulin Human 75/25 Kwickpen 34 UNIT SC (09:21)
[2020-03-10 09:32] VITALS: PULSE 88
[2020-03-10 11:20] LABS: Bedside Glucose 181 mg/dL (70-110)
--- NOTE | 2020-03-10 12:15 | PCM.PN.BLA ---
Progress Note Afebrile VSS-blood pressure is well controlled. Resting heart rate is still high and I suspect he may have some autonomic neuropathy related to longstanding poorly controlled diabetes mellitus or to MS. Maintaining appropriate oxygen saturation on room air Blood sugar record was reviewed. Today will be the first day he receives the increased dose of 75/20 5 in the morning. The at bedtime blood sugar was 146 and he did not require any sliding scale insulin. He received 20 units of 75/25 for the first time last night. The fasting blood sugar was 163. No hypoglycemia All lab was personally reviewed. White blood cell count and platelets are within normal limits. Hemoglobin is 10.8, up from 10.21 02/27/2020. Creatinine is down to 0.93 however the BUN is up to 25 and the BUN/creatinine ratio is still 26.9. Potassium is 4.0 and the sodium is 140. Oral intake is very good so I am not sure why the BUN is increased out of proportion with the creat. Amor has no complaints today. He is propelling the WC better and with increased pace. Alert and oriented. He asked me today if I was able to find another neurologist since Dr. Erazo left the specialty clinic in [place] a few weeks ago. He is showing more concern about getting the MS treated to prevent further deterioration.....I believe the talk we had on Monday got through to him. Lungs - CTA HRRR ABD - soft and NT no edema Incision is intact with no jeremy-wound erythema and no discharge. no calf tenderness on the R. Impressions 1. Debility secondary to recent left BKA and to untreated multiple sclerosis 2. Untreated multiple sclerosis with cognitive dysfunction and weakness with muscle atrophy of the arms and legs 3. Diabetes mellitus type 2-longstanding poor control. Blood sugars are coming under much better control. He will be going home on twice daily injections of Humalog 75/25 insulin. He will also continue linagliptin. 4. Diabetic nephropathy with proteinuria-we will encouraged him to follow-up with a pen tender once a year. Increase the insulin with supper to 24 units daily and continue to monitor 4 times daily blood sugars Discussed finding a neurologist in the [place] area with the social services technician who is doing a search. STROKE Vital Signs/Narrative: Vital Signs Temp Pulse Resp BP Pulse Ox 03/10/20 09:32 88 03/10/20 08:30 98.3 F 99 16 119/70 95 Inpatient E&M: [id number] Subs Hosp L1
[2020-03-10] MEDS: Sertraline 50 MG Tablet PO (14:26)
[2020-03-10 16:50] LABS: Bedside Glucose 185 mg/dL (70-110)
[2020-03-10] MEDS: Insulin Human 75/25 Kwickpen 24 UNIT SC (17:15)
[2020-03-10 19:27] VITALS: BP 120/71; PULSE 93; RESP 20; TEMP 36.3; O2SAT 100
[2020-03-10] MEDS: Atorvastatin Calcium 40 MG Tablet PO (21:12)
[2020-03-10 21:20] VITALS: PULSE 93; RESP 20; O2SAT 100
[2020-03-10 21:41] LABS: Bedside Glucose 177 mg/dL (70-110)
--- NOTE | 2020-03-11 02:26 | NURSING ---
Reviewed and agree with [employer] documentation and charting.
[2020-03-11] MEDS: Enoxaparin 40 MG/0.4 ML Syringe SC (05:00)
[2020-03-11 06:41] LABS: Bedside Glucose 144 mg/dL (70-110)
[2020-03-11] MEDS: Insulin Human 75/25 Kwickpen 38 UNIT SC (07:44)
[2020-03-11] MEDS: Sertraline 50 MG Tablet PO (07:46)
[2020-03-11] MEDS: Pantoprazole Sodium 20 MG Tablet PO ×2 (07:46→21:02)
[2020-03-11] MEDS: Lisinopril 5 MG Tablet PO (07:46)
[2020-03-11 08:00] VITALS: BP 129/72; PULSE 98; RESP 16; TEMP 37.1; O2SAT 97
--- NOTE | 2020-03-11 09:04 | PCM.PN.BLA ---
Progress Note Afebrile VSS maintaining appropriate oxygen saturation on RA eating well good bowel function No complaints, pain is well controlled. Denies lightheadedness, constipation, abdominal pain, dysuria. No chest pain and no shortness of breath. Alert, oriented x3, appropriate Flat affect Mucous membranes are moist with no mucosal lesions, poor dental health with missing teeth and caries Lungs-clear to auscultation but diminished Heart-regular rate and rhythm Abdomen-soft, nontender, nondistended The incision at the stump is intact with no purulent discharge, no periincisional erythema and no increased warmth to touch. There is a small amount of serous drainage. Impressions 1. Debility secondary to recent left BKA and to untreated multiple sclerosis 2. Diabetes mellitus type 2-longstanding poor control. 3. Diabetic nephropathy with proteinuria Continue therapy STROKE Vital Signs/Narrative: Vital Signs Temp Pulse Resp BP Pulse Ox 03/11/20 08:00 98.8 F 98 16 129/72 H 97 Inpatient E&M: [id number] Subs Hosp L1
[2020-03-11] MEDS: Insulin Lispro 100 UNIT/ML INSULN.PEN SC ×3 (11:22→21:02)
--- NOTE | 2020-03-11 11:27 | NURSING ---
Insulin administration teaching completed at this time. Pt able to demonstrate correctly with minimal cues. Will continue with education when insulin is due.
[2020-03-11 11:50] LABS: Bedside Glucose 268 mg/dL (70-110)
[2020-03-11] MEDS: Insulin Human 75/25 Kwickpen 24 UNIT SC (16:32)
[2020-03-11 16:51] LABS: Bedside Glucose 269 mg/dL (70-110)
[2020-03-11 20:07] VITALS: BP 137/79; PULSE 90; RESP 18; TEMP 37.1; O2SAT 100
[2020-03-11] MEDS: Atorvastatin Calcium 40 MG Tablet PO (21:02)
[2020-03-11 22:00] VITALS: PULSE 94; RESP 16; O2SAT 100
[2020-03-11 23:26] LABS: Bedside Glucose 154 mg/dL (70-110)
[2020-03-12] MEDS: Enoxaparin 40 MG/0.4 ML Syringe SC (06:53)
[2020-03-12 07:05] LABS: Bedside Glucose 178 mg/dL (70-110)
[2020-03-12 07:43] VITALS: BP 124/52; PULSE 66; RESP 18; TEMP 36.7; O2SAT 97
[2020-03-12] MEDS: Insulin Lispro 100 UNIT/ML INSULN.PEN SC ×4 (07:55→22:13)
[2020-03-12] MEDS: Insulin Human 75/25 Kwickpen 38 UNIT SC (07:56)
[2020-03-12] MEDS: Lisinopril 5 MG Tablet PO (07:57)
[2020-03-12] MEDS: Pantoprazole Sodium 20 MG Tablet PO ×2 (07:57→22:14)
[2020-03-12] MEDS: Sertraline 50 MG Tablet PO (07:58)
[2020-03-12] MEDS: Insulin Human 75/25 Kwickpen 6 UNIT SC (09:15)
[2020-03-12 11:46] LABS: Bedside Glucose 153 mg/dL (70-110)
[2020-03-12] MEDS: Insulin Human 75/25 Kwickpen 30 UNIT SC (16:46)
[2020-03-12 16:51] LABS: Bedside Glucose 261 mg/dL (70-110)
[2020-03-12 17:34] VITALS: BP 125/73; PULSE 90; RESP 20; TEMP 36.3; O2SAT 98
[2020-03-12] MEDS: Atorvastatin Calcium 40 MG Tablet PO (22:14)
[2020-03-12 22:26] LABS: Bedside Glucose 231 mg/dL (70-110)
[2020-03-13] MEDS: Enoxaparin 40 MG/0.4 ML Syringe SC (06:21)
[2020-03-13 06:45] LABS: Bedside Glucose 181 mg/dL (70-110)
[2020-03-13] MEDS: Insulin Lispro 100 UNIT/ML INSULN.PEN SC (07:46)
[2020-03-13] MEDS: Lisinopril 5 MG Tablet PO (07:47)
[2020-03-13] MEDS: Insulin Human 75/25 Kwickpen 44 UNIT SC (07:47)
[2020-03-13] MEDS: Sertraline 50 MG Tablet PO (07:48)
[2020-03-13] MEDS: Pantoprazole Sodium 20 MG Tablet PO ×2 (07:48→20:17)
[2020-03-13 08:37] VITALS: BP 136/84; PULSE 90; RESP 16; TEMP 36.8; O2SAT 98
--- NOTE | 2020-03-13 10:20 | CASEMGMT ---
Social Work Contacted [facility] to follow up on Waiver application. [place] has the patient's case. Contacted [facility] whom explained there are several more steps that need to be completed prior to sending the information to the State to get it approved, all could take up to 45 days. Provided this worker's name and contact information to get paperwork faxed and phone assessment scheduled with patient to help expedite that process. Explained the goal is for pt to have services in place prior to DC but he will be discharging sooner than 45 days. [facility]. Will continue to follow. DEEP Andersen
[2020-03-13 12:01] LABS: Bedside Glucose 139 mg/dL (70-110)
[2020-03-13] MEDS: Insulin Human 75/25 Kwickpen 30 UNIT SC (17:03)
[2020-03-13 17:11] LABS: Bedside Glucose 97 mg/dL (70-110)
[2020-03-13 19:13] VITALS: BP 136/82; PULSE 90; RESP 16; TEMP 36.7; O2SAT 98
[2020-03-13] MEDS: Atorvastatin Calcium 40 MG Tablet PO (20:18)
[2020-03-13 21:11] LABS: Bedside Glucose 144 mg/dL (70-110)
[2020-03-13 22:00] VITALS: PULSE 88; RESP 16; O2SAT 98
[2020-03-14] MEDS: Enoxaparin 40 MG/0.4 ML Syringe SC (05:05)
[2020-03-14 06:41] LABS: Bedside Glucose 131 mg/dL (70-110)
[2020-03-14 07:36] VITALS: BP 120/73; PULSE 96; RESP 16; TEMP 37; O2SAT 98
[2020-03-14] MEDS: Lisinopril 5 MG Tablet PO (07:42)
[2020-03-14] MEDS: Sertraline 50 MG Tablet PO (07:42)
[2020-03-14] MEDS: Pantoprazole Sodium 20 MG Tablet PO ×2 (07:42→21:06)
[2020-03-14] MEDS: Insulin Human 75/25 Kwickpen 44 UNIT SC (07:44)
[2020-03-14 12:21] LABS: Bedside Glucose 97 mg/dL (70-110)
[2020-03-14] MEDS: Insulin Human 75/25 Kwickpen 30 UNIT SC (17:04)
[2020-03-14 17:40] LABS: Bedside Glucose 118 mg/dL (70-110)
[2020-03-14 19:44] VITALS: BP 122/73; PULSE 88; RESP 16; TEMP 36.7; O2SAT 100
[2020-03-14] MEDS: Atorvastatin Calcium 40 MG Tablet PO (21:06)
[2020-03-14 21:15] LABS: Bedside Glucose 144 mg/dL (70-110)
[2020-03-14 22:00] VITALS: RESP 15; O2SAT 97
[2020-03-15] MEDS: Enoxaparin 40 MG/0.4 ML Syringe SC (05:10)
[2020-03-15 06:40] LABS: Bedside Glucose 126 mg/dL (70-110)
[2020-03-15] MEDS: Sertraline 50 MG Tablet PO (07:37)
[2020-03-15] MEDS: Pantoprazole Sodium 20 MG Tablet PO ×2 (07:37→21:21)
[2020-03-15] MEDS: Lisinopril 5 MG Tablet PO (07:37)
[2020-03-15] MEDS: Insulin Human 75/25 Kwickpen 44 UNIT SC (07:39)
[2020-03-15 08:37] VITALS: BP 124/71; PULSE 88; RESP 16; TEMP 36.6; O2SAT 97
[2020-03-15 11:55] LABS: Bedside Glucose 76 mg/dL (70-110)
[2020-03-15 16:45] LABS: Bedside Glucose 175 mg/dL (70-110)
[2020-03-15] MEDS: Insulin Human 75/25 Kwickpen 30 UNIT SC (17:18)
[2020-03-15] MEDS: Insulin Lispro 100 UNIT/ML INSULN.PEN SC (17:19)
[2020-03-15 20:53] VITALS: BP 138/88; PULSE 92; RESP 18; TEMP 36.6; O2SAT 98
[2020-03-15 21:11] LABS: Bedside Glucose 91 mg/dL (70-110)
[2020-03-15] MEDS: Atorvastatin Calcium 40 MG Tablet PO (21:21)
[2020-03-16] MEDS: Enoxaparin 40 MG/0.4 ML Syringe SC (06:53)
[2020-03-16 07:00] LABS: Bedside Glucose 152 mg/dL (70-110)
[2020-03-16] MEDS: Insulin Lispro 100 UNIT/ML INSULN.PEN SC ×2 (08:11→11:54)
[2020-03-16] MEDS: Insulin Human 75/25 Kwickpen 44 UNIT SC (08:11)
[2020-03-16] MEDS: Pantoprazole Sodium 20 MG Tablet PO ×2 (08:12→20:31)
[2020-03-16] MEDS: Sertraline 50 MG Tablet PO (08:13)
[2020-03-16] MEDS: Lisinopril 5 MG Tablet PO (08:13)
[2020-03-16 08:40] VITALS: BP 120/77; PULSE 92; RESP 16; TEMP 36.6; O2SAT 95
--- NOTE | 2020-03-16 10:08 | CASEMGMT ---
Social Work IDT met with patient for Team meeting. Discussed patient's progress in therapy. Pt is transferring with slideboard x1 CGA, standing better in // bars, doing well with w/c mobility at SBA, on multiple surfaces over 150 ft. Pt is modx1 for shower tx with slideboard, set up/SBA for dressing and bathing, total for toileting. Pt improving well with med management. Blood sugars are controlled. Pt spoke with [facility] Waiver coordinator to complete assessment 03/13. Pt stated they will follow up and call pt on 03/25. Pt's mood has improved with start of antidepressant/anxiety med. Explained insurance NRD 03/20 and IDT recommending continued stay. Pt requires ramp to enter home. Will continue to follow. DEEP AndersenW
[2020-03-16 11:25] LABS: Bedside Glucose 180 mg/dL (70-110)
--- NOTE | 2020-03-16 12:30 | PCM.PROGNOTE ---
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 BKA performed by Dr. Marmolejo at [facility] History of left below knee amputation (Acute) 02/11/20 after he failed multiple debridements at [facility] and antibiotics Anemia (Acute) due to acute blood loss Amputation of right great toe (Acute) Seborrheic dermatitis (Acute) Subjective: Amor was seen on team rounds today. His significant other Iqra was not available to participate by phone. Afebrile VSS-blood pressure is well controlled. Maintaining appropriate oxygen saturation on RA Oral intake is good Last bowel movement was 03/16/2020. Weight is stable Discussed with nursing - no problems that need addressed Reviewed the PT/OT/ST notes Medication list reviewed. Blood sugar record was reviewed. There have been a few blood sugars that were on the low side but no true hypoglycemia. Generally the low blood sugar occurs when he has received sliding scale coverage for a BS in the 150 to 190 range No complaints today. Has been progressing well with PT/OT/ST. He is doing a better job with remembering the names of his meds. He does everything that is asked of him. He gave up his crackers to nursing and the BS's are looking much better. He has been better able to focus and is not as lethargic. He has not been irritable. He denies heartburn and also denies nausea and epigastric or CP. - Physical Exam Vitals/I&O's: Vital Signs Temp Pulse Resp BP Pulse Ox 97.9 F 92 16 120/77 95 03/16/20 08:40 03/16/20 08:40 03/16/20 08:40 03/16/20 08:40 03/16/20 08:40 Oxygen Delivery Method Room Air Weight: 206 lb 2.115 oz Body Mass Index (BMI) 30.4 Intake and Output for Last 24 Hours 03/14/20 03/15/20 03/16/20 23:59 23:59 23:59 Intake Total 1860 / 1860 1380 / 1380 520 / 520 Output Total 1550 / 1550 1050 / 1050 200 / 200 Balance 310 / 310 330 / 330 320 / 320 General: Alert, Oriented x3, Cooperative Oral: Moist Mucosa, No Gingival or Mucosal Lesions/ Ulcerations Lungs: Clear to auscultation, Diminished Cardiovascular: Regular rate, Regular Rhythm, Normal S1, Normal S2, No Gallop Abdomen: Bowel Sounds Present, Soft, Non Tender, Non-Distended Extremities: No cyanosis, No edema, No Calf Tenderness Skin: Incision - this is intact with no dehiscense and no purulent DC and no jermey-incisional erythema Musculoskeletal: Muscle Wasting - legs > arms Neurological: Cranial nerves II-XII grossly intact, - - generalized weakness with no focal deficits Psych/Mental Status: Flat Affect Laboratory Results 03/15/20 16:26: POC Glucose 175 H 03/15/20 21:06: POC Glucose 91 03/16/20 06:54: POC Glucose 152 H 03/16/20 11:23: POC Glucose 180 H Current Medications Atorvastatin Calcium (Atorvastatin Calcium 40 Mg Tablet) 40 mg PO QHS [facility] Last Admin: 03/15/20 21:21 Dose: 40 mg Documented by: Bisacodyl (Bisacodyl 10 Mg Suppository) 10 mg RECTAL .PRN X 1 PRN PRN Reason: Constipation Dextrose (Dextrose 50%-Water 25 Gm/50 Ml Disp.Syrin) 0 gm IV X1 PRN; Protocol PRN Reason: Hypoglycemia Emollient Ointment (Emollient Combination No.72 500 Ml Lotion) 1 applic TOPICAL BID [facility]; Protocol Last Admin: 03/16/20 08:17 Dose: 1 applicatio Documented by: Enoxaparin Sodium (Enoxaparin 40 Mg/0.4 Ml Syringe) 40 mg SC DAILY@0600 [facility] Last Admin: 03/16/20 06:53 Dose: 40 mg Documented by: Glucagon (Glucagon 1 Mg/Ml Syringe) 1 mg IM .X1 PRN PRN Reason: Hypoglycemia Insulin Human Lispro (Insulin Lispro 100 Unit/Ml Insuln.Pen) 0 unit SC ACHS [facility]; Protocol Last Admin: 03/16/20 11:54 Dose: 3 units Documented by: Insulin Lispro Protam/Lispro Human (Insulin Human 75/25 Kwickpen) 44 unit SC BREAKFAST [facility] Last Admin: 03/16/20 08:11 Dose: 44 u Documented by: Insulin Lispro Protam/Lispro Human (Insulin Human 75/25 Kwickpen) 30 unit SC DINNER [facility] Last Admin: 03/15/20 17:18 Dose: 30 u Documented by: Liraglutide (Liraglutide 0.6 Mg/0.1 Ml Pen.Injctr) 0.6 mg SQ DAILY [facility] Last Admin: 03/16/20 08:12 Dose: 0.6 mg Documented by: Lisinopril (Lisinopril 5 Mg Tablet) 5 mg PO DAILY [facility] Last Admin: 03/16/20 08:13 Dose: 5 mg Documented by: Magnesium Hydroxide (Magnesium Hydroxide 30 Ml Udc) 30 ml PO .PRN X 1 PRN PRN Reason: Constipation Oxycodone HCl (Oxycodone 5 Mg Tablet) 5 mg PO Q6H PRN PRN PRN Reason: Pain 1-10 or Fever Last Admin: 03/07/20 07:51 Dose: 5 mg Documented by: Pantoprazole Sodium (Pantoprazole Sodium 20 Mg Tablet) 20 mg PO BID [facility] Last Admin: 03/16/20 08:12 Dose: 20 mg Documented by: Sertraline HCl (Sertraline 50 Mg Tablet) 50 mg PO DAILY [facility] Last Admin: 03/16/20 08:13 Dose: 50 mg Documented by: Medical Necessity - Tobacco Use Smoking Status: Never smoker Tobacco Use: Non-smoker, - - admits to binge drinking 12 beers at a time a couple times a month Assessment/Plan All Active Problems Physical debility (Acute) History of left below knee amputation (Acute) Anemia (Acute) Amputation of right great toe (Acute) Seborrheic dermatitis (Acute) Impressions 1. Physical debility secondary to recent left BKA and advanced multiple sclerosis which is longstanding and untreated. 2. Multiple sclerosis 3. Generalized weakness 4. History of an Arnold-Chiari malformation with craniectomy in the . I do not know if the cognitive dysfunction is due to the malformation? or to MS. Will let neurology sort this out. Still needs help with medication management. Iqra will have to oversee him for med management when he is able to go home. 5. Poorly controlled diabetes mellitus type 2-poor compliance with diet 6. Acute blood loss anemia-low MCV, low RBC count with an adequate iron saturation and ferritin. 7. Seborrheic dermatitis of the face Continue therapy Imperative he follow up with neurology post discharge to be evaluated for tx of MS I doubt he will be able to use a prosthesis.......he has a lot of muscle wasting in both LE's. I think he is going to be WC bound unless he is treated for MS and regains some strength. Ramp to enable to get into his dwelling is not in place Inpatient E&M: [id number] Subs Hosp L2
[2020-03-16] MEDS: Insulin Human 75/25 Kwickpen 30 UNIT SC (16:49)
[2020-03-16 16:56] LABS: Bedside Glucose 244 mg/dL (70-110)
[2020-03-16 19:32] VITALS: BP 123/72; PULSE 97; RESP 20; TEMP 36.9; O2SAT 99
[2020-03-16] MEDS: Atorvastatin Calcium 40 MG Tablet PO (20:32)
[2020-03-16 20:35] VITALS: PULSE 93; RESP 18; O2SAT 97
[2020-03-16 21:20] LABS: Bedside Glucose 200 mg/dL (70-110)
[2020-03-17] MEDS: Enoxaparin 40 MG/0.4 ML Syringe SC (05:00)
[2020-03-17 06:31] LABS: Bedside Glucose 160 mg/dL (70-110)
[2020-03-17 08:06] VITALS: BP 109/69; PULSE 94; RESP 17; TEMP 36.7; O2SAT 98
[2020-03-17] MEDS: Insulin Human 75/25 Kwickpen 44 UNIT SC (08:08)
[2020-03-17] MEDS: Pantoprazole Sodium 20 MG Tablet PO ×2 (08:09→20:51)
[2020-03-17] MEDS: Lisinopril 5 MG Tablet PO (08:09)
[2020-03-17] MEDS: Sertraline 50 MG Tablet PO (08:09)
[2020-03-17 12:05] LABS: Bedside Glucose 106 mg/dL (70-110)
--- NOTE | 2020-03-17 14:56 | PCM.PN.BLA ---
Progress Note Afebrile VSS Maintaining appropriate oxygen saturation on RA Oral intake is good Discussed with nursing - no problems that need addressed Reviewed the PT/OT/ST notes Medication list reviewed. Iqra is going to have to assist him with his meds when he does get home with med management. No complaints. he is more cooperative with getting up in the morning and doing his grooming Lungs-clear to auscultation Heart-regular rate and rhythm No peripheral edema, no calf tenderness on the right Incision is intact with small amount of serous drainage. No erythema, no purulent discharge, no increased warmth to touch. Impressions 1. Debility secondary to recent left BKA and untreated multiple sclerosis which has been longstanding, since the early . 2. Generalized muscle weakness and atrophy, legs greater than arms 3. We are working on wheelchair mobility doubt he will be able to use a prosthesis unless muscle strength greatly improves with treatment of MS. 4. Cognitive dysfunction-possibly secondary to history of Arnold-Chiari malformation, surgery to repair the malformation and untreated MS. Continue therapy Ramp is not yet built We will likely have to discharge to a senior living facility until he has access with a ramp to his residence. Inpatient E&M: [id number] Subs Hosp L1
[2020-03-17 16:36] LABS: Bedside Glucose 120 mg/dL (70-110)
[2020-03-17] MEDS: Insulin Human 75/25 Kwickpen 30 UNIT SC (17:02)
[2020-03-17] MEDS: Atorvastatin Calcium 40 MG Tablet PO (20:52)
[2020-03-17 22:00] VITALS: BP 133/84; PULSE 84; RESP 20; TEMP 36.6; O2SAT 99
[2020-03-17 22:05] LABS: Bedside Glucose 238 mg/dL (70-110)
[2020-03-18] MEDS: Enoxaparin 40 MG/0.4 ML Syringe SC (05:41)
[2020-03-18 06:35] LABS: Bedside Glucose 167 mg/dL (70-110)
[2020-03-18] MEDS: Lisinopril 5 MG Tablet PO (08:18)
[2020-03-18] MEDS: Pantoprazole Sodium 20 MG Tablet PO ×2 (08:18→20:23)
[2020-03-18] MEDS: Sertraline 50 MG Tablet PO (08:18)
[2020-03-18] MEDS: Insulin Human 75/25 Kwickpen 44 UNIT SC (08:19)
[2020-03-18 08:30] VITALS: BP 132/84; PULSE 89; RESP 16; TEMP 36.3; O2SAT 97
[2020-03-18 11:20] LABS: Bedside Glucose 168 mg/dL (70-110)
--- NOTE | 2020-03-18 16:15 | PCM.PN.BLA ---
Progress Note Afebrile VSS-blood pressure is well controlled. Maintaining appropriate oxygen saturation on RA Oral intake is good Discussed with nursing - no problems that need addressed Reviewed the PT/OT/ST notes Medication list reviewed. Blood sugar record was reviewed. Blood sugars are very erratic depending on how much snacking he is doing. When he is not snacking the blood sugars are well controlled however he has cookies, Fritos, potato chips in his room and some days are better than others. Pain is adequately controlled, not needing narcotics Denies lightheadedness, chest pain, shortness of breath, nausea, vomiting, abdominal pain, dysuria. Alert and oriented x3 Lungs-clear to auscultation Heart-regular rate and rhythm No skin breakdown and no rashes No calf pain on the right Impressions 1. Debility secondary to recent left BKA due to necrotizing fasciitis 2. Debility secondary to untreated multiple sclerosis-initially diagnosed in the early 3. Diabetes mellitus type 2-historically uncontrolled. Patient is noncompliant with diet and I do not think he is capable at this point of retaining information about proper diet. Snacking continues to be an issue and blood sugars are erratic. Adjust insulin regimen as needed [facility] because the ramp to enter his residence has not been built yet Continue therapy for as long as he is in rehab. Focus on wheelchair mobility and safety Inpatient E&M: [id number] Subs Hosp L1
[2020-03-18 16:35] LABS: Bedside Glucose 158 mg/dL (70-110)
[2020-03-18] MEDS: Insulin Human 75/25 Kwickpen 36 UNIT SC (17:32)
[2020-03-18 19:16] VITALS: BP 132/77; PULSE 90; RESP 18; TEMP 36.3; O2SAT 98
[2020-03-18 20:20] VITALS: PULSE 90; RESP 18; O2SAT 98
[2020-03-18] MEDS: Atorvastatin Calcium 40 MG Tablet PO (20:23)
[2020-03-18 20:46] LABS: Bedside Glucose 174 mg/dL (70-110)
--- NOTE | 2020-03-19 02:15 | NURSING ---
Reviewed and agree with [employer] documentation and charting.
[2020-03-19] MEDS: Enoxaparin 40 MG/0.4 ML Syringe SC (06:37)
[2020-03-19 06:46] LABS: Bedside Glucose 132 mg/dL (70-110)
[2020-03-19 07:46] VITALS: BP 144/85; PULSE 95; RESP 16; TEMP 36.6; O2SAT 98
[2020-03-19] MEDS: Insulin Human 75/25 Kwickpen 44 UNIT SC (09:21)
[2020-03-19] MEDS: Lisinopril 5 MG Tablet PO (09:23)
[2020-03-19] MEDS: Sertraline 50 MG Tablet PO (09:23)
[2020-03-19] MEDS: Pantoprazole Sodium 20 MG Tablet PO ×2 (09:23→22:34)
[2020-03-19 11:40] LABS: Bedside Glucose 93 mg/dL (70-110)
[2020-03-19 17:11] LABS: Bedside Glucose 175 mg/dL (70-110)
[2020-03-19] MEDS: Insulin Human 75/25 Kwickpen 36 UNIT SC (17:53)
[2020-03-19 19:30] VITALS: BP 140/79; PULSE 93; RESP 18; TEMP 37.3; O2SAT 98
[2020-03-19 21:06] LABS: Bedside Glucose 145 mg/dL (70-110)
[2020-03-19] MEDS: Atorvastatin Calcium 40 MG Tablet PO (22:34)
[2020-03-20] MEDS: Enoxaparin 40 MG/0.4 ML Syringe SC (06:42)
[2020-03-20 07:11] LABS: Bedside Glucose 142 mg/dL (70-110)
[2020-03-20 08:09] VITALS: BP 126/80; PULSE 93; RESP 18; TEMP 36.6; O2SAT 94
[2020-03-20] MEDS: Lisinopril 5 MG Tablet PO (08:14)
[2020-03-20] MEDS: Pantoprazole Sodium 20 MG Tablet PO ×2 (08:14→20:38)
[2020-03-20] MEDS: Insulin Human 75/25 Kwickpen 44 UNIT SC (08:14)
[2020-03-20] MEDS: Sertraline 50 MG Tablet PO (08:15)
--- NOTE | 2020-03-20 09:23 | PCM.PN.BLA ---
Progress Note Afebrile VSS Maintaining appropriate oxygen saturation on RA Oral intake is good Discussed with nursing - no problems that need addressed Reviewed the PT/OT/ST notes Medication list reviewed. no complaints BS's continue to be erratic due to snacking. Suspect this is unlikely to change post DC. His temperament is more even. Has not been yelling at staff and he is cooperating with therapy and with getting up early to get ready for the day. Less encouragement needed to get him to do things for himself. alert Lungs - CTA HRRR, no gallop no peripheral edema no calf pain on the right incision looking good - no sign infection or dehiscence no rashes and no skin breakdown Impressions 1. debility due to recent L BKA 2. Debility due to untreated MS 3. erratic BS control due to snacking and non-adherence to diet. Unlikely to change although we are trying to educate him on diet. 4. Cognitive dysfunction-likely multifactorial secondary to untreated MS, prior history of Arnold-Chiari malformation and surgery to repair, longstanding uncontrolled diabetes with possible cerebrovascular disease and depression. Continue therapy [facility] Continue to work on wheelchair mobility STROKE Vital Signs/Narrative: Vital Signs Temp Pulse Resp BP Pulse Ox 03/20/20 08:09 97.8 F 93 18 126/80 H 94 Inpatient E&M: 22909 Subs Hosp L1
[2020-03-20 11:11] LABS: Bedside Glucose 244 mg/dL (70-110)
[2020-03-20] MEDS: Insulin Human 75/25 Kwickpen 36 UNIT SC (16:42)
[2020-03-20 17:21] LABS: Bedside Glucose 160 mg/dL (70-110)
[2020-03-20] MEDS: Atorvastatin Calcium 40 MG Tablet PO (20:37)
[2020-03-20 21:50] LABS: Bedside Glucose 212 mg/dL (70-110)
[2020-03-20 22:00] VITALS: BP 124/86; PULSE 94; RESP 16; TEMP 36.4; O2SAT 98
[2020-03-21] MEDS: Enoxaparin 40 MG/0.4 ML Syringe SC (06:45)
[2020-03-21 06:50] LABS: Bedside Glucose 190 mg/dL (70-110)
[2020-03-21] MEDS: Insulin Human 75/25 Kwickpen 44 UNIT SC (08:00)
[2020-03-21] MEDS: Pantoprazole Sodium 20 MG Tablet PO ×2 (08:00→21:40)
[2020-03-21] MEDS: Lisinopril 5 MG Tablet PO (08:01)
[2020-03-21] MEDS: Sertraline 50 MG Tablet PO (08:02)
[2020-03-21 08:39] VITALS: BP 138/82; PULSE 97; RESP 16; TEMP 36.7; O2SAT 99
[2020-03-21 11:15] LABS: Bedside Glucose 287 mg/dL (70-110)
[2020-03-21] MEDS: Insulin Human 75/25 Kwickpen 36 UNIT SC (17:00)
[2020-03-21 17:11] LABS: Bedside Glucose 189 mg/dL (70-110)
[2020-03-21 19:30] VITALS: BP 124/74; PULSE 94; RESP 16; TEMP 36.6; O2SAT 96
[2020-03-21 21:15] LABS: Bedside Glucose 208 mg/dL (70-110)
[2020-03-21] MEDS: Atorvastatin Calcium 40 MG Tablet PO (21:40)
[2020-03-21 22:00] VITALS: PULSE 90; RESP 16; O2SAT 94
[2020-03-22 06:31] LABS: Bedside Glucose 195 mg/dL (70-110)
[2020-03-22] MEDS: Enoxaparin 40 MG/0.4 ML Syringe SC (06:50)
[2020-03-22] MEDS: Lisinopril 5 MG Tablet PO (07:55)
[2020-03-22] MEDS: Pantoprazole Sodium 20 MG Tablet PO ×2 (07:55→21:31)
[2020-03-22] MEDS: Sertraline 50 MG Tablet PO (07:55)
[2020-03-22] MEDS: Insulin Human 75/25 Kwickpen 44 UNIT SC (07:55)
[2020-03-22 07:59] VITALS: BP 131/76; PULSE 95; RESP 18; TEMP 37; O2SAT 95
[2020-03-22 12:00] LABS: Bedside Glucose 99 mg/dL (70-110)
[2020-03-22] MEDS: Insulin Human 75/25 Kwickpen 36 UNIT SC (16:55)
[2020-03-22 17:30] LABS: Bedside Glucose 162 mg/dL (70-110)
[2020-03-22 19:31] VITALS: BP 107/71; PULSE 91; RESP 16; TEMP 36.9; O2SAT 100
[2020-03-22 20:51] LABS: Bedside Glucose 143 mg/dL (70-110)
[2020-03-22] MEDS: Atorvastatin Calcium 40 MG Tablet PO (21:31)
[2020-03-22 22:00] VITALS: PULSE 90; RESP 16; O2SAT 95
[2020-03-23] MEDS: Enoxaparin 40 MG/0.4 ML Syringe SC (06:21)
[2020-03-23 06:55] LABS: Bedside Glucose 163 mg/dL (70-110)
[2020-03-23 08:01] VITALS: BP 134/73; PULSE 98; RESP 16; TEMP 36.6; O2SAT 98
[2020-03-23] MEDS: Insulin Human 75/25 Kwickpen 44 UNIT SC (08:25)
[2020-03-23] MEDS: Pantoprazole Sodium 20 MG Tablet PO ×2 (08:27→20:45)
[2020-03-23] MEDS: Sertraline 50 MG Tablet PO (08:28)
[2020-03-23] MEDS: Lisinopril 5 MG Tablet PO (08:28)
--- NOTE | 2020-03-23 10:37 | CASEMGMT ---
Addendum entered by Nohemi Mckenzie 03/24/20 11:42: [facility] has accepted pt. [facility] has COVID outbreak at this time. Notified pt. Addendum entered by Nohemi Mckenzie 03/23/20 12:58: Pt chose [facility] Referrals made. Will continue to follow. Original Note: Social Work IDT met with patient and and S.O. via conference call for Team meeting. Pt is min-mod for slideboard tx, SBA for w/c mobility over 200ft, working on standing tolerance, set up fro grooming, bathing, and LE dr. at bed level, max for toileting tasks. ST is working on memory, finance and med management, but recommending supervision at DC. Explained insurance NRD 03/30 and continued stay is not guaranteed. Explained pt's progress in slow and unsure if pt would be safe at home. Waiver will take time to get established, especially to get a ramp built to enter home. Pt is a mod assist for slideboard tx and S.O. unsure if she could assist at home. IDT discussed transition to SNF until safe to DC home. Pt would prefer not to DC to SNF but will consider. Provided list of in network SNF facilities. YULIANA to cover cost. Will continue to follow. DEEP Andersen
[2020-03-23] MEDS: Ketoconazole Cream 1 APPLIC TOPICAL ×2 (10:51→20:43)
[2020-03-23 11:36] LABS: Bedside Glucose 251 mg/dL (70-110)
--- NOTE | 2020-03-23 15:30 | PN_ITS ---
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 BKA performed by Dr. Marmolejo at [facility] History of left below knee amputation (Acute) 02/11/20 after he failed multiple debridements at [facility] and antibiotics Type II diabetes mellitus (Acute) Multiple sclerosis (Acute) Dyslipidemia (Acute) Anemia (Acute) Diabetic neuropathy associated with type 2 diabetes mellitus (Acute) Peripheral vascular disease (Acute) Amputation of right great toe (Acute) Subjective: Amor was seen on team rounds today. His significant other Iqra participated by phone. The ramp into their home has not been completed. Afebrile VSS blood pressure is well controlled. Maintaining appropriate oxygen saturation on RA Oral intake is good. Discussed with nursing - no problems that need addressed Reviewed the PT/OT/ST notes -he is still requiring moderate assistance to use the sliding board for transfers. Medication list reviewed. Blood sugar record was reviewed. Blood sugars are under much better control with Humalog 75/25 insulin twice daily and Victoza. The 11 AM and the HS sugars are often > 200. He has fritos and also cookies in his room but tells me that he has been decreasing his snacking. He denies chest pain, shortness of breath, palpitations, nausea, diarrhea, abdominal pain, dysuria. - Physical Exam Vitals/I&O's: Vital Signs Temp Pulse Resp BP Pulse Ox 97.9 F 98 16 134/73 H 98 03/23/20 08:01 03/23/20 08:01 03/23/20 08:01 03/23/20 08:01 03/23/20 08:01 Oxygen Delivery Method Room Air Weight: 208 lb 15.971 oz Body Mass Index (BMI) 30.4 Intake and Output for Last 24 Hours 03/21/20 03/22/20 03/23/20 23:59 23:59 23:59 Intake Total 2200 / 2200 1900 / 2020 1100 / 1100 Output Total 1300 / 1300 175 / 2049 1450 / 1450 Balance 900 / 900 150 / -30 -350 / -350 General: Alert, Oriented x3, Cooperative, No apparent distress, Well developed, Well nourished HEENT: - - Pupils are equal round and reactive to light. He has yellow scaley/flaking over the forehead and in the bonilla area with ewrythema of the cheeks and the bridge of the nose Oral: Moist Mucosa Neck: Supple, Trachea Midline Lungs: Clear to auscultation Cardiovascular: Regular rate, Regular Rhythm, No Gallop Abdomen: Soft, Non Tender, Non-Distended Extremities: No edema Skin: - - The incision is intact with no dehiscence, no periincisional erythema and no discharge. The stump is shrinking. Momo wrap was in place prior to my examination. Musculoskeletal: Muscle Wasting - arms and the R calf Neurological: Cranial nerves II-XII grossly intact, - - he has chronic weakness of the arms and the legs which I suspect is due to untreated long-standing MS. He has an appt to follow up with neurology in May. Iqra can not tell me with which neurologist.....she thinks it may be in [place] Psych/Mental Status: Appropriate, Flat Affect Laboratory Results 03/22/20 16:53: POC Glucose 162 H 03/22/20 20:44: POC Glucose 143 H 03/23/20 06:28: POC Glucose 163 H 03/23/20 11:33: POC Glucose 251 H Current Medications Atorvastatin Calcium (Atorvastatin Calcium 40 Mg Tablet) 40 mg PO QHS [facility] Last Admin: 03/22/20 21:31 Dose: 40 mg Documented by: Bisacodyl (Bisacodyl 10 Mg Suppository) 10 mg RECTAL .PRN X 1 PRN PRN Reason: Constipation Dextrose (Dextrose 50%-Water 25 Gm/50 Ml Disp.Syrin) 0 gm IV X1 PRN; Protocol PRN Reason: Hypoglycemia Emollient Ointment (Emollient Combination No.72 500 Ml Lotion) 1 applic TOPICAL BID [facility]; Protocol Last Admin: 03/23/20 08:31 Dose: 1 applicatio Documented by: Enoxaparin Sodium (Enoxaparin 40 Mg/0.4 Ml Syringe) 40 mg SC DAILY@0600 [facility] Last Admin: 03/23/20 06:21 Dose: 40 mg Documented by: Glucagon (Glucagon 1 Mg/Ml Syringe) 1 mg IM .X1 PRN PRN Reason: Hypoglycemia Insulin Lispro Protam/Lispro Human (Insulin Human 75/25 [place]) 44 unit SC BREAKFAST [facility] Last Admin: 03/23/20 08:25 Dose: 44 u Documented by: Insulin Lispro Protam/Lispro Human (Insulin Human 75/25 [place]) 36 unit SC DINNER [facility] Last Admin: 03/22/20 16:55 Dose: 36 u Documented by: Ketoconazole (Ketoconazole Cream) 1 applic TOPICAL BID [facility]; Protocol Last Admin: 03/23/20 10:51 Dose: 1 applicatio Documented by: Liraglutide (Liraglutide 0.6 Mg/0.1 Ml Pen.Injctr) 0.6 mg SQ DAILY [facility] Last Admin: 03/23/20 08:26 Dose: 0.6 mg Documented by: Lisinopril (Lisinopril 5 Mg Tablet) 5 mg PO DAILY [facility] Last Admin: 03/23/20 08:28 Dose: 5 mg Documented by: Magnesium Hydroxide (Magnesium Hydroxide 30 Ml Udc) 30 ml PO .PRN X 1 PRN PRN Reason: Constipation Oxycodone HCl (Oxycodone 5 Mg Tablet) 5 mg PO Q6H PRN PRN PRN Reason: Pain 1-10 or Fever Last Admin: 03/07/20 07:51 Dose: 5 mg Documented by: Pantoprazole Sodium (Pantoprazole Sodium 20 Mg Tablet) 20 mg PO BID [facility] Last Admin: 03/23/20 08:27 Dose: 20 mg Documented by: Sertraline HCl (Sertraline 50 Mg Tablet) 50 mg PO DAILY [facility] Last Admin: 03/23/20 08:28 Dose: 50 mg Documented by: Medical Necessity - Tobacco Use Smoking Status: Never smoker Tobacco Use: Non-smoker, - - admits to binge drinking 12 beers at a time a couple times a month Assessment/Plan All Active Problems Physical debility (Acute) History of left below knee amputation (Acute) Type II diabetes mellitus (Acute) Multiple sclerosis (Acute) Dyslipidemia (Acute) Anemia (Acute) Diabetic neuropathy associated with type 2 diabetes mellitus (Acute) Peripheral vascular disease (Acute) Amputation of right great toe (Acute) Impressions 1. Physical debility secondary to recent left BKA and advanced multiple sclerosis which is longstanding and untreated. 2. Multiple sclerosis 3. Generalized weakness 4. History of an Arnold-Chiari malformation with craniectomy in the . I do not know if the cognitive dysfunction is due to the malformation? or to MS. Will let neurology sort this out. Still needs help with medication management. Iqra will have to oversee him for med management when he is able to go home. 5. Poorly controlled diabetes mellitus type 2-poor compliance with diet 6. Acute blood loss anemia-low MCV, low RBC count with an adequate iron saturation and ferritin. 7. Seborrheic dermatitis of the face Recheck CBC, BMP, mag in AM Nizoral cream BID to the seborrheic dermatitis of the face. I do not think at this point that Iqra will be able to provide enough assistance for can to go home. He is currently only doing 50% with slide board transfers and that is with skilled therapists. When asked if she could come in for family training Iqra would not give an answer. He will need a ramp in place prior to being discharged home where he will not be able to get into his house. Downgrading him to an SNF until a ramp is in place and he is better able to use a sliding board is a consideration. Continue therapy Increase the AM insulin dose. Inpatient E&M: [id number] Subs Hosp L2
[2020-03-23] MEDS: Insulin Human 75/25 Kwickpen 36 UNIT SC (16:47)
[2020-03-23 17:31] LABS: Bedside Glucose 259 mg/dL (70-110)
[2020-03-23 19:23] VITALS: BP 128/77; PULSE 96; RESP 17; TEMP 37; O2SAT 100
[2020-03-23 20:32] VITALS: PULSE 96; RESP 16; O2SAT 95
[2020-03-23] MEDS: Atorvastatin Calcium 40 MG Tablet PO (20:43)
[2020-03-23 21:16] LABS: Bedside Glucose 207 mg/dL (70-110)
[2020-03-24] MEDS: Enoxaparin 40 MG/0.4 ML Syringe SC (05:36)
[2020-03-24 05:42] LABS: Hematocrit 37.4 % (40-54); Hemoglobin 12.1 g/dL (13.0-16.5); Mean Corp Hgb Conc 32.4 g/dL (32-36); Mean Corpuscular Volume 83.5 fL (80-94); Mean Platelet Vol. 10.2 fl (6.2-12.0); Platelet Count 236 K/mm3 (150-450); RBC Distribution Width CV 14.5 % (11.6-14.6); RBC Distribution Width SD 43.9 fl (35.1-43.9); Red Blood Count 4.48 M/mm3 (4.6-6.2); White Blood Count 8.2 K/mm3 (4.4-11.0)
[2020-03-24 06:28] LABS: Anion Gap 4 (5-15); BUN 23 mg/dL (7-18); BUN/Creat Ratio 28.1 RATIO (10-20); Calcium,Total 8.9 mg/dL (8.5-10.1); Chloride 106 mmol/L (98-107); Creatinine, Serum 0.82 mg/dL (0.70-1.30); EST Glomerular Filtration Rate 105 mL/min (>60); Est Glom Filt Rate - Afr Amer 127 mL/min (>60); Estimated Creatinine Clearance 105.38 ml/min; Glucose 143 mg/dL (74-106); Potassium 4.2 mmol/L (3.5-5.1); Sodium Level 141 mmol/L (136-145)
[2020-03-24 06:35] LABS: Bedside Glucose 153 mg/dL (70-110)
[2020-03-24 08:15] VITALS: BP 137/81; PULSE 100; RESP 18; TEMP 37; O2SAT 98
[2020-03-24] MEDS: Insulin Human 75/25 Kwickpen 44 UNIT SC (08:17)
[2020-03-24] MEDS: Pantoprazole Sodium 20 MG Tablet PO ×2 (08:18→20:45)
[2020-03-24] MEDS: Sertraline 50 MG Tablet PO (08:18)
[2020-03-24] MEDS: Lisinopril 5 MG Tablet PO (08:18)
[2020-03-24] MEDS: Ketoconazole Cream 1 APPLIC TOPICAL ×2 (08:22→20:44)
[2020-03-24 12:06] LABS: Bedside Glucose 149 mg/dL (70-110)
[2020-03-24 17:21] LABS: Bedside Glucose 119 mg/dL (70-110)
[2020-03-24] MEDS: Insulin Human 75/25 Kwickpen 36 UNIT SC (17:45)
[2020-03-24 19:37] VITALS: BP 105/69; PULSE 95; RESP 16; TEMP 36.7; O2SAT 100
[2020-03-24] MEDS: Atorvastatin Calcium 40 MG Tablet PO (20:44)
[2020-03-24 21:56] LABS: Bedside Glucose 112 mg/dL (70-110)
[2020-03-24 22:00] VITALS: PULSE 95; RESP 16; O2SAT 100
[2020-03-25] MEDS: Enoxaparin 40 MG/0.4 ML Syringe SC (06:18)
[2020-03-25 06:40] LABS: Bedside Glucose 127 mg/dL (70-110)
[2020-03-25 08:13] VITALS: BP 125/79; PULSE 95; RESP 16; TEMP 36.7; O2SAT 98
[2020-03-25] MEDS: Sertraline 50 MG Tablet PO (08:19)
[2020-03-25] MEDS: Lisinopril 5 MG Tablet PO (08:19)
[2020-03-25] MEDS: Pantoprazole Sodium 20 MG Tablet PO ×2 (08:19→20:54)
[2020-03-25] MEDS: Insulin Human 75/25 Kwickpen 44 UNIT SC (08:20)
[2020-03-25] MEDS: Ketoconazole Cream 1 APPLIC TOPICAL ×2 (08:21→20:55)
[2020-03-25 11:20] LABS: Bedside Glucose 142 mg/dL (70-110)
--- NOTE | 2020-03-25 15:11 | PCM.PN.BLA ---
Progress Note Afebrile VSS Maintaining appropriate oxygen saturation on RA Oral intake is good Discussed with nursing - no problems that need addressed Reviewed the PT/OT/ST notes Medication list reviewed. Blood sugar record was reviewed and the blood sugars are well controlled with no hypoglycemia. All lab work from 03/24/2020 was reviewed. Potassium is 4.2 and the sodium is 141. BUN is 23 and the creatinine is improving and is 0.82 today. White blood cell count and platelets are within normal limits. Hemoglobin is improving and is 12.1 today, up from 10.8 on 03/10/2020. Amor has no complaints today. He denies lightheadedness, nausea/vomiting/abdominal pain, chest pain, shortness of breath, dysuria, constipation, diarrhea. Alert, oriented x3, no apparent distress, more conversant than at admission. Mucous membranes are moist Lungs-clear to auscultation with diminished breath sounds especially in the bases Heart-regular rate and rhythm, no gallop Abdomen-soft, nontender, nondistended, normal bowel sounds heard, no guarding with palpation No rashes, no skin breakdown The incision is intact without dehiscence. There is no periincisional erythema, no purulent discharge and no increased warmth to touch of the left stump. Denies calf pain on the right. Impressions 1. Debility secondary to recent left BKA for necrotizing fasciitis 2. Debility secondary to untreated multiple sclerosis diagnosed in the early and never treated 3. History of an Arnold-Chiari malformation and surgical repair 4. Generalized muscle weakness with atrophy, legs greater than arms 5. Cognitive dysfunction Continue PT/OT/ST No changes to the drug regimen Continue with diet education SNF at discharge Inpatient E&M: 70644 Subs Hosp L2
[2020-03-25] MEDS: Insulin Human 75/25 Kwickpen 36 UNIT SC (16:52)
[2020-03-25 17:10] LABS: Bedside Glucose 124 mg/dL (70-110)
[2020-03-25] MEDS: Atorvastatin Calcium 40 MG Tablet PO (20:54)
[2020-03-25 21:36] LABS: Bedside Glucose 112 mg/dL (70-110)
[2020-03-25 21:45] VITALS: BP 119/81; PULSE 93; RESP 16; TEMP 36.7; O2SAT 99
[2020-03-26] MEDS: Enoxaparin 40 MG/0.4 ML Syringe SC (06:37)
[2020-03-26 07:10] LABS: Bedside Glucose 147 mg/dL (70-110)
[2020-03-26 07:35] VITALS: BP 115/70; PULSE 101; RESP 18; TEMP 36.3; O2SAT 100
[2020-03-26] MEDS: Insulin Human 75/25 Kwickpen 44 UNIT SC (08:13)
[2020-03-26] MEDS: Pantoprazole Sodium 20 MG Tablet PO ×2 (08:14→21:00)
[2020-03-26] MEDS: Lisinopril 5 MG Tablet PO (08:15)
[2020-03-26] MEDS: Sertraline 50 MG Tablet PO (08:15)
[2020-03-26] MEDS: Ketoconazole Cream 1 APPLIC TOPICAL ×2 (08:28→21:00)
--- NOTE | 2020-03-26 10:28 | CASEMGMT ---
Social Work IDT agreed to DC date of 03/30. Spoke with pt and pt agreeable. Pt had Waiver assessment completed via phone 03/25 by Patricia Pitts from [facility] ([phone]) and she will submit for approval/denial. Pt understands. Pt will transfer to [facility]. Contacted [facility]. 7000 completed. Scheduled w/c transport through [facility] and [facility] between 1:30 - 2 pm. Reservation #[id number] Plan: DC to [facility] 03/30 DEEP Andersen
--- NOTE | 2020-03-26 11:47 | PCM.PN.BLA ---
Progress Note Afebrile VSS Maintaining appropriate oxygen saturation on RA Oral intake is [] Discussed with nursing - no problems that need addressed Reviewed the PT/OT/ST notes yesterday with the sliding board in place can was able to hit into the wheelchair on his own and go from the wheelchair to the recliner in the wheelchair to the NuStep at min assist. He has good mobility with the wheelchair. He was able to do the NuStep for 15 minutes at level 4. He completed 8 stands in 30 seconds from the wheelchair. He was able to propel the wheelchair 500 feet supervision on various surfaces. The right lower extremity still is inconsistent with buckling. He is independent or supervision with grooming, bathing, upper body and lower body dressing, toileting, toilet transfer and tub/shower transfer. He has been able to refinery operator assistant the parallel bars for 3 minutes at contact-guard assist and the therapist blocking his right knee for safety. Medication list reviewed. Blood sugars are very well controlled and he has no hypoglycemia. He denies pain. snacking has been better recently Alert, pleasant and cooperative L- CTA HRRR Abd - soft, NT no peripheral edema no rashes no skin breakdown Impressions 1. physical debility post L BKA 2. untreated MS with slow progressive loss of strength and also now with cognitive dysfunction 3. DM II -historically uncontrolled with poor dietary compliance 4. resting tachycardia - autonomic dysfunction related to poor BS control? 5. Diabetic nephropathy with proteinuria 6. History of an Arnold-Chiari malformation and surgical repair He has reached a plateau in acute rehab. There is no ramp at the house yet and he will not be able to get in because of steps. He will need to go to SNF prior to returning home. He has been accepted at [facility]. Affect is still very flat and I know he would rather go home and is depressed about having to go [facility]. Will increase the Sertraline to 100mg daily......he is tolerating this well with no adverse side effects. He has an appt scheduled with neurology in May to address treatment for MS Inpatient E&M: [id number] Subs Hosp L2
[2020-03-26 11:56] LABS: Bedside Glucose 71 mg/dL (70-110)
[2020-03-26] MEDS: Insulin Human 75/25 Kwickpen 36 UNIT SC (16:37)
[2020-03-26 17:41] LABS: Bedside Glucose 111 mg/dL (70-110)
[2020-03-26 19:09] VITALS: BP 117/65; PULSE 98; RESP 18; TEMP 36.5; O2SAT 99
[2020-03-26 20:51] LABS: Bedside Glucose 136 mg/dL (70-110)
[2020-03-26] MEDS: Atorvastatin Calcium 40 MG Tablet PO (21:01)
[2020-03-27] MEDS: Enoxaparin 40 MG/0.4 ML Syringe SC (06:05)
[2020-03-27 06:56] LABS: Bedside Glucose 143 mg/dL (70-110)
[2020-03-27 07:48] VITALS: BP 133/88; PULSE 94; RESP 16; TEMP 36.6; O2SAT 100
[2020-03-27] MEDS: Lisinopril 5 MG Tablet PO (08:49)
[2020-03-27] MEDS: Pantoprazole Sodium 20 MG Tablet PO ×2 (08:49→20:43)
[2020-03-27] MEDS: Sertraline 100 MG Tablet PO (08:49)
[2020-03-27] MEDS: Insulin Human 75/25 Kwickpen 44 UNIT SC (08:52)
--- NOTE | 2020-03-27 09:42 | PN_ITS ---
Progress Note Afebrile Vital signs are stable. Resting heart rate is always in the 90s and occasionally in the low 100s. Oral intake is fair to adequate. He is maintaining appropriate oxygen saturation on room air His last bowel movement was 03/26/2020. it was hard......I am always encouraging him to increase his water intake PT/OT/ST notes were reviewed No problems reported by nursing Medication list was reviewed Blood sugar record was reviewed. The blood sugars are well controlled with one low blood sugar at 71 yesterday at lunchtime...this happens occasionally.......he sometimes does not eat much for breakfast, not an early riser but, better than at admission Alert, oriented, NAD Lungs CTA HRRR abd - soft, NT no edema no skin breakdown and no rashes incision is clean, dry and intact with no evidence of infection Impressions 1. Debility secondary to recent left BKA for necrotizing fasciitis 2. Generalized weakness/debility secondary to multiple sclerosis diagnosed in the early and never treated. Has never seen a neurologist. Appointment has been made for him to see a neurologist in [place] in May. I have encouraged him to follow-up with the [facility] however he is resistance because he said it is too far for him to go. I did remind him that if the MS continues to progress he will have to remain in an extended care facility as Iqra will no longer be able to take care of him. 3. Cognitive dysfunction 4. Diabetes mellitus type 2-with proteinuria/diabetic nephropathy and possible autonomic dysfunction with resting tachycardia that is chronic Patient is to be discharged to assisted on 03/30/2020. He cannot return home until there is a ramp built for him to enter his residence. STROKE Vital Signs/Narrative: Vital Signs Temp Pulse Resp BP Pulse Ox 03/27/20 07:48 98 F 94 16 133/88 H 100 Inpatient E&M: 04004 Subs Hosp L1
[2020-03-27 13:16] LABS: Bedside Glucose 164 mg/dL (70-110)
[2020-03-27 17:21] LABS: Bedside Glucose 237 mg/dL (70-110)
[2020-03-27] MEDS: Insulin Human 75/25 Kwickpen 36 UNIT SC (17:25)
[2020-03-27] MEDS: Ketoconazole Cream 1 APPLIC TOPICAL ×2 (17:26→20:43)
[2020-03-27 19:23] VITALS: BP 135/87; PULSE 94; RESP 18; TEMP 36.5; O2SAT 99
[2020-03-27] MEDS: Atorvastatin Calcium 40 MG Tablet PO (20:44)
[2020-03-27 21:30] LABS: Bedside Glucose 218 mg/dL (70-110)
[2020-03-28] MEDS: Enoxaparin 40 MG/0.4 ML Syringe SC (06:33)
[2020-03-28 06:50] LABS: Bedside Glucose 182 mg/dL (70-110)
[2020-03-28] MEDS: Insulin Human 75/25 Kwickpen 44 UNIT SC (08:14)
[2020-03-28] MEDS: Pantoprazole Sodium 20 MG Tablet PO ×2 (08:15→20:35)
[2020-03-28] MEDS: Ketoconazole Cream 1 APPLIC TOPICAL ×2 (08:15→20:35)
[2020-03-28] MEDS: Lisinopril 5 MG Tablet PO (08:15)
[2020-03-28] MEDS: Sertraline 100 MG Tablet PO (08:16)
[2020-03-28 08:22] VITALS: BP 130/82; PULSE 100; RESP 12; TEMP 36.8; O2SAT 97
[2020-03-28 11:50] LABS: Bedside Glucose 239 mg/dL (70-110)
[2020-03-28] MEDS: Insulin Human 75/25 Kwickpen 36 UNIT SC (16:09)
[2020-03-28 16:16] LABS: Bedside Glucose 248 mg/dL (70-110)
[2020-03-28 20:30] VITALS: BP 130/62; PULSE 88; RESP 20; TEMP 36.8; O2SAT 99
[2020-03-28] MEDS: Atorvastatin Calcium 40 MG Tablet PO (20:35)
[2020-03-28 21:41] LABS: Bedside Glucose 243 mg/dL (70-110)
[2020-03-29] MEDS: Enoxaparin 40 MG/0.4 ML Syringe SC (06:19)
[2020-03-29 06:40] LABS: Bedside Glucose 213 mg/dL (70-110)
[2020-03-29] MEDS: Ketoconazole Cream 1 APPLIC TOPICAL ×2 (07:49→19:55)
[2020-03-29] MEDS: Insulin Human 75/25 Kwickpen 44 UNIT SC (07:49)
[2020-03-29] MEDS: Sertraline 100 MG Tablet PO (07:50)
[2020-03-29] MEDS: Lisinopril 5 MG Tablet PO (07:50)
[2020-03-29] MEDS: Pantoprazole Sodium 20 MG Tablet PO ×2 (07:50→20:02)
[2020-03-29 08:19] VITALS: BP 139/87; PULSE 94; RESP 16; TEMP 36.5; O2SAT 97
[2020-03-29 12:21] LABS: Bedside Glucose 94 mg/dL (70-110)
[2020-03-29] MEDS: Insulin Human 75/25 Kwickpen 36 UNIT SC (17:01)
[2020-03-29 17:25] LABS: Bedside Glucose 194 mg/dL (70-110)
[2020-03-29 20:13] VITALS: PULSE 90; RESP 16; O2SAT 99
[2020-03-29 21:31] LABS: Bedside Glucose 281 mg/dL (70-110)
[2020-03-29 21:32] VITALS: BP 138/77; PULSE 90; RESP 16; TEMP 36.4; O2SAT 99
[2020-03-30] MEDS: Enoxaparin 40 MG/0.4 ML Syringe SC (06:16)
[2020-03-30 06:41] LABS: Bedside Glucose 202 mg/dL (70-110)
[2020-03-30] MEDS: Pantoprazole Sodium 20 MG Tablet PO (07:32)
[2020-03-30] MEDS: Insulin Human 75/25 Kwickpen 44 UNIT SC (07:32)
[2020-03-30] MEDS: Sertraline 100 MG Tablet PO (07:33)
[2020-03-30 08:00] VITALS: BP 133/80; PULSE 90; RESP 16; TEMP 36.8; O2SAT 98
--- NOTE | 2020-03-30 11:35 | TREXTCAR_ITS ---
- Diet 02/26/20 13:25 Diet: Carbohydrate Controlled Food consistency:: Regular Liquid Consistency:: Regular/Thin Type of Dietary Supplement:: Babatunde Diet Comments: Babatunde w/ breakfast and dinner - Routine Orders/Code Status Enema Type: Fleetz Enema Frequency: Daily PRN Suppository Type: Dulcolax 10mg Suppository Frequency: Daily PRN Routine Lab Work: - - BMP and CBC oin 1 week Code Status: Full Code - Wound(s) L BKA Wound Type: Surgical Incision B/L elbows Wound Type: Abrasion L knee & upper delgado Wound Type: Abrasion Ball of right foot Wound Type: Scab R foot 2nd, 3rd, and 5th toes Wound Type: Scabs R ACHILLES AREA Wound Type: Abrasion - Therapies Weight Bearing: Non weight bearing Extremity Affected:: Left Lower Physical Therapy: Eval and Treat Occupational Therapy: Eval and Treat Speech Therapy: Eval and Treat - Problem/Diagnosis (1) Physical debility Status: Acute Comment: due to recent Left BKA on 02/11/20 for osteomyelitis/septic arthritisw with a gas producing organism and gas throughout the left LE distal to the knee. BKA performed by Dr. Marmolejo at [facility] (2) History of left below knee amputation Status: Acute Comment: 02/11/20 after he failed multiple debridements at [facility] and antibiotics (3) Osteomyelitis Status: Chronic Comment: no prolonged antibiotics because the left leg was amputated (4) Type II diabetes mellitus Status: Chronic (5) Multiple sclerosis Status: Chronic Comment: diagnosed in the and has never been treated. (6) Dyslipidemia Status: Chronic (7) Anemia Status: Acute Comment: due to acute blood loss (8) Diabetic neuropathy associated with type 2 diabetes mellitus Status: Chronic (9) Amputation of right great toe Status: Acute (10) HTN (hypertension) Status: Chronic (11) GERD (gastroesophageal reflux disease) Status: Chronic (12) Seborrheic dermatitis Status: Acute (13) Generalized weakness Status: Chronic Comment: likely due to untreated MS (14) Arnold-Chiari malformation Status: Inactive (15) History of craniotomy Status: Chronic Comment: in the for Arnold Chiari Malformation - Allergies/Procedures Done in Hospital Allergies/Adverse Reactions: Allergies No Known Allergies Allergy (Verified 02/26/20 12:59) - Type of Care/Length of Stay Estimated LOS: Convalescent Care Less Than 30 days Type of Care Needed: Skilled Rehab Potential: Good Prognosis: Good - Additional Orders/Day of Discharge Additional Orders: He has cognitive dysfunction which is likely due to craniotomy in the past but also the MS likely contributes. He is having a ramp built at his house so that he can get in the front door. He is very mobile in the Wheelchair. He needs to follow up with neurology to get the MS treated. He has an appt scheduled in May with Dr. Posadas in [place] but, I would really like for him to be seen at the [facility] if he will go. His diabetes is not well controlled......very difficult because he is not compliant with diet. The Victoza was increased to 1.2 mg daily on the day of discharge. He will follow up with Dr. Betancourt for endocrinology post DC. H&P will serve as current which was dated: 02/26/20 Day of Discharge: 03/30/20 - Dietary and Speech Recommendations Dietitian Recommendations/Changes: Continue carbohydrate controlled diet. Will continue to monitor need for less calories/CHO pending wt changes. Will continue Babatunde BID for wound healing-- tolerating well with good acceptance. - Follow Up Care Primary Care Physician: JOSEPH CAST [Other] Please follow up with your Primary Care Physician in: Joseph Cast CNP Please Follow Up With: Joseph Cast CNP Please Follow Up With: [facility] When: 2 weeks Please Follow Up With: Delfin Betancourt MD When: Monday Please Follow Up With: Trevin Posadas MD
[2020-03-30 12:05] LABS: Bedside Glucose 148 mg/dL (70-110)
--- NOTE | 2020-03-30 12:07 | DS.PCM_ITS ---
Discharge Date and Diagnosis - Problem List Patient Problems: Active and Suspected Problems Physical debility (Acute) due to recent Left BKA on 02/11/20 for osteomyelitis/septic arthritisw with a gas producing organism and gas throughout the left LE distal to the knee. BKA performed by Dr. Marmolejo at [facility] History of left below knee amputation (Acute) 02/11/20 after he failed multiple debridements at [facility] and antibiotics Anemia (Acute) due to acute blood loss Amputation of right great toe (Acute) Seborrheic dermatitis (Acute) Date of Admission: 02/26/20 Date of Discharge: 03/30/20 - Primary Discharge Diagnosis Acute Problems: Active Problems Physical debility (Acute) due to recent Left BKA on 02/11/20 for osteomyelitis/septic arthritisw with a gas producing organism and gas throughout the left LE distal to the knee. BKA performed by Dr. Marmolejo at [facility] History of left below knee amputation (Acute) 02/11/20 after he failed multiple debridements at [facility] and antibiotics Anemia (Acute) due to acute blood loss Seborrheic dermatitis (Acute) - Secondary Discharge Diagnosis Chronic Problems: Chronic Problems Osteomyelitis (Chronic) no prolonged antibiotics because the left leg was amputated Type II diabetes mellitus - uncontrolled (Chronic) Multiple sclerosis (Chronic) diagnosed in the and has never been treated. 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 Amputation of right great toe (Acute) Hospital Course and Treatment Imaging Results: Laboratory Last Values WBC 8.2 K/mm3 (4.4-11.0) 03/24/20 05:35 RBC 4.48 M/mm3 (4.6-6.2) L 03/24/20 05:35 Hgb 12.1 g/dL (13.0-16.5) L 03/24/20 05:35 Hct 37.4 % (40-54) L 03/24/20 05:35 MCV 83.5 fL (80-94) 03/24/20 05:35 MCH 27.0 pg (27.0-32.0) 03/24/20 05:35 MCHC 32.4 g/dL (32-36) 03/24/20 05:35 RDW Std Deviation 43.9 fl (35.1-43.9) 03/24/20 05:35 RDW Coeff of Emily 14.5 % (11.6-14.6) 03/24/20 05:35 Plt Count 236 K/mm3 (150-450) 03/24/20 05:35 MPV 10.2 fl (6.2-12.0) 03/24/20 05:35 Sodium 141 mmol/L (136-145) 03/24/20 05:35 Potassium 4.2 mmol/L (3.5-5.1) 03/24/20 05:35 Chloride 106 mmol/L (98-107) 03/24/20 05:35 Carbon Dioxide 31.0 mmol/L (21.0-32.0) 03/24/20 05:35 Anion Gap 4 (5-15) L 03/24/20 05:35 BUN 23 mg/dL (7-18) H 03/24/20 05:35 Creatinine 0.82 mg/dL (0.70-1.30) 03/24/20 05:35 Estim Creat Clear Calc 105.38 ml/min 03/24/20 05:35 Est GFR (MDRD) Af Amer 127 mL/min (>60) 03/24/20 05:35 Est GFR (MDRD) Non-Af 105 mL/min (>60) 03/24/20 05:35 BUN/Creatinine Ratio 28.1 RATIO (10-20) H 03/24/20 05:35 Glucose 143 mg/dL (74-106) H 03/24/20 05:35 Hemoglobin A1c 8.3 % (3.8-5.6) H 02/27/20 05:23 Calcium 8.9 mg/dL (8.5-10.1) 03/24/20 05:35 Magnesium 2.1 mg/dL (1.6-2.6) 02/27/20 05:23 Iron 46 ug/dL (65-175) L 02/28/20 11:00 TIBC 216 ug/dL (250-450) L 02/28/20 11:00 Iron Saturation 21.3 % (15.0-55.0) 02/28/20 11:00 Ferritin 230 ng/mL (26-388) 02/28/20 11:00 Total Bilirubin 0.60 mg/dL (0.20-1.00) 02/27/20 05:23 AST 27 U/L (15-37) 02/27/20 05:23 ALT 39 U/L (16-61) 02/27/20 05:23 Alkaline Phosphatase 176 U/L (45-117) H 02/27/20 05:23 Total Protein 7.5 g/dL (6.4-8.2) 02/27/20 05:23 Albumin 2.5 g/dL (3.2-5.0) L 02/27/20 05:23 Globulin 5.0 g/dL (2.2-4.2) H 02/27/20 05:23 Albumin/Globulin Ratio 0.5 RATIO (0.9-2.4) L 02/27/20 05:23 Triglycerides 200 mg/dL (-199) H 02/27/20 05:23 Cholesterol 138 mg/dL (200) 02/27/20 05:23 LDL Cholesterol 67 mg/dL (0-130) 02/27/20 05:23 VLDL Cholesterol 40 mg/dL (5-40) 02/27/20 05:23 HDL Cholesterol 31 mg/dL (40-) L 02/27/20 05:23 TSH 1.43 uIU/mL (0.358-3.74) 02/28/20 11:00 COVID-19 (HOLLY) Not Detected (Not Detect) 03/26/20 12:50 POC Glucose 148 mg/dL (70-110) H 03/30/20 11:44 Microbiology 03/28/20 18:12 Mucosa - Nose SARS-CoV-2 Antigen (Rapid) - Final negative 03/11/20 08:54 Stool Stool Occult Blood (FIDEL) - Final Negative none Operations: None Procedures: None Summary of Care Provided: Amor Arzola is a 50 year old M with a PMH of MS, DM II - poorly controlled, HTN, diabetic nephropathy, diabetic peripheral polyneuropathy and hx of a Chiari malformation requiring neurosurgery who sprained his ankle and was seen at [facility] ED. A splint was applied and when it was removed 3 days later there were extensive pressure wounds. He was admitted to [place] and had multiple debridements. He was discharged on IV antibiotics and a wound vac to a SNF. Despite the aggressive wound care and antibiotics the wounds continued to get worse and he was sent to [facility] emergently. CT of the left foot and ankle showed gas throughout the foot and ankle and osteomyelitis. He was taken for an emergent BKA on 02/11/20. He was transferred to [facility] inpt rehab on 02/26/20 for 3 hours of therapy daily to restore him at or near his prior level of function. Amor was diagnosed with MS in the early and he has never been treated for it. He has generalized weakness and I doubt he will ever be able to use a prosthesis because the right leg is atrophied and will not support him. Mybe if he gets the MS treated strength will improve. We have been working with him on stands and pivots and transfers to the , shower chair and onto the toilet with a sliding board. He is doing much better but it has taken several weeks. He is very mobile with the on various surfaces and going up ramps. Unfortunately he has some cognitive dysfunction, likely to to the ol Arnold Chiari malformation/craniotomy and the untreated MS. ST has been working wih him on managing his medications but, they still recommend his significant other, Iqra, oversees his meds. They are going to get a ramp at their home to facilitate Amor being able to get into the home with a WC. He has acute blood loss anemia but the HGB has been improving and on 03/24/20 it was up to 12.1 from 10.2 at admission. Creatinine has improved and is 0.82, down from 1.03 at admission. The BUN remains elevated at 23 however he has good oral intake and this may be due to the Babatunde. Blood sugars have been very erratic depending on how much he is snacking. He has had crackers, potato chips, Fritos and cookies in his room. He has been educated by the dietitian and carbohydrate control but, I am not sure he retains this information. Iqra was also educated on carbohydrate control and hopefully when he is at home she will not buy these things for him. Amor was anxious and depressed at home. Iqra states that he frequently loses his temper and yells at her. He also sleeps a lot and has been losing strength. He was started on Sertraline at admission and he is better on the current dose of 100mg. He has been more motivated to do therapy and he is pleasant and even tempered. He is sleeping well. He has not been taking any pain medication and he denies pain at the time of discharge. He was advised to follow up with neurology to start treatment for MS. An appt was made with Dr. Posadas at [facility] however, the appt is not until May. I have encouraged him to follow up with the [facility] at [facility] but, he is hesitant.....he does not want to drive that far. He is also going to follow up with Dr. Betancourt from endocrinology to manage the diabetes.. He will also follow up with Carla Cast CNP for routine medical care and the surgeon who did the amputation. At the time of discharge his vital signs were temp 98.3, pulse rate 90, blood pressure 133/80 and he was 98% saturated on room air with a respiratory rate of 16. Blood sugar this morning was 202 fasting and 148 at lunchtime. He has been snacking a lot on junk food in his room. Alert, oriented x3, cooperative, no apparent distress, well-developed and well- nourished. Pupils are equal round and reactive to light. He has seborrheic dermatitis over his forehead and in the bonilla area it is improving with Nizoral cream twice daily. Lungs-clear to auscultation Mucous membranes are moist Heart regular rate and rhythm with no gallop, no murmur and no rub. Abdomen-soft, nontender, nondistended, normal bowel sounds heard No rashes, no skin breakdown. The incision over the left BKA area is intact with no periincisional erythema, no discharge and no dehiscence. He has muscle atrophy in the right leg and also in the arms. Cranial nerves II through XII are grossly intact and he has generalized weakness. Affect is still somewhat flat however his motivation has improved with sertraline and his participation in therapy. He has had no temper issues and has been very cooperative. This note was generated with Finderlyation software. It may contain incorrect words, spelling, and punctuation that were not noted in checking the note before signing. [] Patient Problems: Active and Suspected Problems Physical debility (Acute) due to recent Left BKA on 02/11/20 for osteomyelitis/septic arthritisw with a gas producing organism and gas throughout the left LE distal to the knee. BKA performed by Dr. Marmolejo at [facility] History of left below knee amputation (Acute) 02/11/20 after he failed multiple debridements at [facility] and antibiotics Anemia (Acute) due to acute blood loss Amputation of right great toe (Acute) Seborrheic dermatitis (Acute) - Physical Exam Vitals/I&O's: Vital Signs Temp Pulse Resp BP Pulse Ox 98.3 F 90 16 133/80 H 98 03/30/20 08:00 03/30/20 08:00 03/30/20 08:00 03/30/20 08:00 03/30/20 08:00 Oxygen Delivery Method Room Air Weight: 211 lb 3.245 oz Body Mass Index (BMI) 30.4 Intake and Output for Last 24 Hours 03/28/20 03/29/20 03/30/20 23:59 23:59 23:59 Intake Total 1260 / 1260 2720 / 2720 800 / 800 Output Total 600 / 600 1300 / 1300 400 / 400 Balance 660 / 660 1420 / 1420 400 / 400 Microbiology Past 72 Hours 03/28/20 18:12 Mucosa - Nose SARS-CoV-2 Antigen (Rapid) - Final Laboratory Results 03/29/20 12:05: POC Glucose 94 03/29/20 16:59: POC Glucose 194 H 03/29/20 21:24: POC Glucose 281 H 03/30/20 06:31: POC Glucose 202 H 03/30/20 11:44: POC Glucose 148 H Current Medications Emollient Ointment (Emollient Combination No.72 500 Ml Lotion) 1 applic TOPICAL BID [facility]; Protocol Last Admin: 03/30/20 07:34 Dose: 1 applicatio Documented by: Enoxaparin Sodium (Enoxaparin 40 Mg/0.4 Ml Syringe) 40 mg SC DAILY@0600 [facility] Last Admin: 03/30/20 06:16 Dose: 40 mg Documented by: Insulin Lispro Protam/Lispro Human (Insulin Human 75/25 Kwickpen) 44 unit SC BREAKFAST [facility] Last Admin: 03/30/20 07:32 Dose: 44 u Documented by: Insulin Lispro Protam/Lispro Human (Insulin Human 75/25 Kwickpen) 36 unit SC DINNER [facility] Last Admin: 03/29/20 17:01 Dose: 36 u Documented by: Ketoconazole (Ketoconazole Cream) 1 applic TOPICAL BID [facility]; Protocol Last Admin: 03/30/20 07:34 Dose: Not Given Documented by: Liraglutide (Liraglutide 0.6 Mg/0.1 Ml Pen.Injctr) 0.6 mg SQ DAILY [facility] Last Admin: 03/30/20 07:33 Dose: 0.6 mg Documented by: Pantoprazole Sodium (Pantoprazole Sodium 20 Mg Tablet) 20 mg PO BID [facility] Last Admin: 03/30/20 07:32 Dose: 20 mg Documented by: Sertraline HCl (Sertraline 100 Mg Tablet) 100 mg PO DAILY [facility] Last Admin: 03/30/20 07:33 Dose: 100 mg Documented by: Home Medications: Medications to take at Discharge Atorvastatin Calcium 40 mg PO QHS 02/26/20 Lisinopril 5 mg PO DAILY 02/26/20 Omeprazole 40 mg PO QHS 02/26/20 Emollient Combination No.72 [Eucerin Intensive Repair] 1 applic TOPICAL BID lotion 03/30/20 Insulin Human 75/25 [Humalog Mix 75-25 Kwikpen ([facility])] 36 unit SC DINNER insuln.pen 03/30/20 Insulin Human 75/25 [Humalog Mix 75-25 Kwikpen ([facility])] 44 unit SC BREAKFAST insu ln.pen 03/30/20 Ketoconazole [Nizoral Cream] 1 applic TOPICAL BID tube 03/30/20 Liraglutide [Victoza] 1.2 mg SQ DAILY #1 pen.injctr 03/30/20 Sertraline HCl [Zoloft] 100 mg PO DAILY tab 03/30/20 Primary Care Physician: JOSEPH CAST [Other] Please follow up with your Primary Care Physician in: Joseph Cast CNP Please Follow Up With: Joseph Cast CNP Please Follow Up With: [facility] When: 2 weeks Please Follow Up With: Delfin Betancourt MD When: Monday Please Follow Up With: Trevin Posadas MD Minutes spent on discharge:: 45 Patient Condition:: Good Medical Necessity - Tobacco Use Smoking Status: Never smoker Tobacco Use: Non-smoker, - - admits to binge drinking 12 beers at a time a couple times a month Meaningful Use Info Meaningful Use Diagnoses (Choose all that apply): None applicable Inpatient E&M: 59423 Disch Hosp
--- NOTE | 2020-03-30 15:00 | NURSING ---
Discharge to SNF and report given to facility and transport here.
== END 2020-03-30 15:00 | disposition skilled nursing facility (03) | DRG 560 ==
PROVIDERS: Admitting Provider Internal Medicine; Visit Provider Internal Medicine
DX: Z47.81 Encounter for orthopedic aftercare following surgical amputation (principal); M86.672 Other chronic osteomyelitis, left ankle and foot; D62 Acute posthemorrhagic anemia; Z89.512 Acquired absence of left leg below knee; K21.9 Gastro-esophageal reflux disease without esophagitis; I10 Essential (primary) hypertension; G35 Multiple sclerosis; E11.42 Type 2 diabetes mellitus with diabetic polyneuropathy; E78.5 Hyperlipidemia, unspecified; E11.51 Type 2 diabetes mellitus with diabetic peripheral angiopathy without gangrene; E11.69 Type 2 diabetes mellitus with other specified complication; Z91.11 Patient's noncompliance with dietary regimen; E11.21 Type 2 diabetes mellitus with diabetic nephropathy; E11.65 Type 2 diabetes mellitus with hyperglycemia; L30.9 Dermatitis, unspecified; Z89.411 Acquired absence of right great toe; L85.3 Xerosis cutis; L21.9 Seborrheic dermatitis, unspecified
CPT/HCPCS: 36415; 80048; 80053; 80061; 82274; 82728; 82962; 83036; 83540; 83550; 83735; 84443; 85027; 87426; 87635; 92507; 92523; 97110; 97116; 97162; 97166; 97530; 97535; 97542; 97802; 97803; U0002

== ENCOUNTER → 2020-06-11 10:01 | Outpatient (CLI) | payer MEDICARE, MEDICAID, SELFPAY ==
[2020-05-28 08:58] VITALS: BMI 34.2
--- NOTE | 2020-06-11 10:08 | MRI_ITS ---
STUDY: MRI BRAIN WITH AND WITHOUT CONTRAST REASON FOR EXAM: Male, 50 years old. M.S.since 1991, RIGHT leg weakness TECHNIQUE: Standardized multiplanar fat and water weighted pulse sequences were obtained. 21ML IV Dotarem was administered for the contrast portion of the examination. COMPARISON: None. FINDINGS: Normal size of the ventricles and extra-axial spaces for the patient''s age. Normal white matter tracts of the supratentorial brain. There is no evidence for recent intracranial ischemia or other cause of cytotoxic edema on diffusion weighted imaging (DWI). Normal T2* images of the brain without demonstrated susceptibility artifact. There is no demonstrated hemosiderin stain. Focal insufflation gliosis in the left frontal lobe likely related to prior infarct or trauma. Normal bilateral basal ganglia. Normal thalami. There is no extra-axial fluid accumulation. Normal flow voids within the major intracranial circulation suggesting patency by spin echo criteria. Normal venous enhancement. There is no enhancing intra-axial or extra-axial abnormality. Normal sella turcica, pituitary gland, infundibular stalk, optic chiasm and hypothalamus. Normal tectal plate and pineal gland. Normal midbrain, debbie and medulla. Normal cerebellum. Normal basal cisterns. Normal bilateral temporal bones. Normal bilateral internal auditory canals. No demonstrated orbital abnormality, within the constraints of a routine brain study. Normal visualized paranasal sinuses. Normal calvarium and skull base. Normal visualized soft tissue structures. Normal visualized upper cervical spine. MRI/Brain W/WO Contrast IMPRESSION: 1. Focal encephalomalacia and gliosis in the left frontal lobe likely from prior infarct or trauma. 2. No convincing MR evidence of demyelinating disease (multiple sclerosis). Electronically Signed: Rj James MD at 13:49 EST Tel , Service support ,
--- NOTE | 2020-06-11 10:08 | MRI_ITS ---
STUDY: MRI CERVICAL SPINE WITH AND WITHOUT CONTRAST REASON FOR EXAM: Male, 50 years old. ms since 1991, right leg weakness TECHNIQUE: Standardized fat and water weighted pulse sequences were obtained in the sagittal and axial following administration of 21ml IV Dotarem. COMPARISON: None FINDINGS: Normal foramen magnum and brainstem-cervical cord junction. Normal craniovertebral junction. Normal anterior atlantoaxial articulation. Normal odontoid process. Normal cervical lordosis. Normal vertebral bodies and posterior osseous elements. C2-3: Normal endplates. Normal disc height, signal and morphology. Normal central canal and intervertebral neural foramina. C3-4: Normal endplates. Normal disc height, signal and morphology. Normal central canal and intervertebral neural foramina. C4-5: Mild broad disc osteophyte complex produces mild spinal stenosis. No neural foraminal stenosis. C5-6: Normal endplates. Normal disc height, signal and morphology. Normal central canal and intervertebral neural foramina. C6-7: Moderate broad disc osteophyte complex produces moderate spinal stenosis and mild bilateral neural foraminal stenosis. C7-T1: Normal endplates. Normal disc height, signal and morphology. Normal central canal and intervertebral neural foramina. Mild dilatation the central canal at the level of C2 consistent with a short syrinx. Normal visualized soft tissue structures. MRI/Spine Cervical W/WO Contrast IMPRESSION: 1. Multilevel degenerative changes, as described above. 2. Short syrinx at the level of C2. Electronically Signed: Rj James MD at 15:25 EST Tel , Service support ,
== END ==
PROVIDERS: PCP Student in an Organized Health Care Education/Training Program; Referring Provider Psychiatry & Neurology Neurology; Visit Provider Psychiatry & Neurology Neurology
DX: G35 Multiple sclerosis (principal); G20 Parkinson's disease
CPT/HCPCS: 70553; 72156; A9575